=== PATIENT | male | born 1940 ===

== ENCOUNTER 2019-12-16 10:44 | Inpatient (IN) | payer MEDICARE ==
[~2019-12-16] VITALS: Ht 182.9 cm; Wt 98.0 kg
[2019-12-16 12:05] VITALS: BP 139/76; PULSE 91; TEMP 98.8
[2019-12-16] MEDS ORDERED: ASPIRIN 81M81 MG/TA2 PO ×2 (12:48→12:54)
[2019-12-16] MEDS ORDERED: LIPITOR 80MG80 MG PO (12:55)
[2019-12-16] MEDS ORDERED: PLAVIX 75MG TAB75 MG PO (12:55)
[2019-12-16] MEDS ORDERED: DULCOLAX STOOL100 MG PO (13:06)
[2019-12-16] MEDS ORDERED: MIRALAX PA17 GM/Dose PO (13:06)
[2019-12-16] MEDS ORDERED: TYLENOL 325MG325 MG PO (13:07)
[2019-12-16 18:05] VITALS: BP 153/84; PULSE 103; TEMP 98.7
--- NOTE | 2019-12-16 19:40 | NUR ---
Patient arrived via transport vehicle and came by stretcher. Daughter assisted with the 5 page questions. Patient talkative, has no movement to left arm and leg. He is left handed per daughter. Patient denied pain. He is incontinent of urine today x 2. Patient is a max 2 assist or full body lift. He has a great attitude and was comical this afternoon. He had orders for thin liquids, but patient coughed each time staff was given this. He was able to tolerated thickened liquids. He has a wet cough that is non productive. 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 Patient has no skin break down and was checked Q2Hrs this shift for any incontinence. He is currently resting in bed, call light in reach and bed alarm is set. Reported off to night nurse.
--- NOTE | 2019-12-16 20:00 | NUR ---
PT RESTING IN BED. LT SIDE FLACCID. PT ANSWERS QUESTIONS IN ONE -TWO WORDS. SLOW THOUGHT PROCESS. PT IS RESTLESS BUT NOT IMPULSIVE. HOB 90 DEGREES WHEN TAKING MEDS. TAKES HS MEDS CRUSHED WITH APPLESAUCE THEN A DRINK OF NECTAER THICK H20. PT HOLDS CONTENT IN MOUTH. NEEDS ENCOURAGED TO SWALLOW. SWALLOWS VERY HARD. HAS OCCASIONAL COUGH. 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 TYLENOL GIVEN. SEE MAR. NEEDS REPOSITIONED FREQUENTLY PT MIGTRATES TO LT SIDE OF BED. WEARS DIAPERS FOR INCONTINENCE. NO SKIN ISSUES NOTED. CALL LIGHT IN REACH. BED ALARM SET.
--- NOTE | 2019-12-17 01:50 | NUR ---
PT ASLEEP NOW.
--- NOTE | 2019-12-17 03:30 | NUR ---
PT AWAKE. MORE CONVERSIVE THIS AM. "I MUST HAVE IT THE CALL LIGHT BY MISTAKE." DENIES ANY NEEDS AT THIS TIME. RESTING AND MORE RELAXED.
[2019-12-17 06:00] VITALS: BP 147/77; PULSE 90; TEMP 97.6
--- NOTE | 2019-12-17 10:43 | NUR ---
Patient currently working with ST at this time. Patient sitting in recliner, call light in reach and alarm is set.
--- NOTE | 2019-12-17 14:23 | NUR ---
This patient is new to [facility]. SW met with the patient to complete initial intake but the patient as hard to rouse and somewhat confused. SW contacted the patient's , Yao ([phone]) to complete intake. The patient lives approximately 3 miles from [place] with Yao. The patient has a walker with a seat and prior to these hospitalizations the patient was independent with ADLs. The patient's PCP is Dr. Goss and the patient is to receive his medications from [facility] in [place]. The patient does not have advanced directives in the EMR. The patient's did inquire about DPOA-HC paperwork. SW informed the that we would have to wait until the patient was not confused and off any pain medications. Yao understood. The patient has two adult children, Kim and Jean. They both live approximately 2 miles from Yao and the patient. SW will continue to follow.
--- NOTE | 2019-12-17 14:36 | NUR ---
Patient resting in bed, call light in reach and bed alarm set. Air mattress was placed on patient's bed.
[2019-12-17 15:27] VITALS: BP 148/80; PULSE 90; TEMP 98.2
--- NOTE | 2019-12-17 19:10 | NUR ---
PATIENT RESTING IN BED DURING CHANGE OF SHIFT REPORT RECEIVED FROM DAY SHIFT NURSEKOMAL. BED ALARM ON.
--- NOTE | 2019-12-17 19:39 | NUR ---
Patient attended all therapies today. He was a total assist with eating, toileting and ambulation. Patient saw ST today and he is now on Mechanical soft, Thin liquids. See updated orders. Patient was fed his breakfast this morning and ate well. He refused his lunch, but this nurse fed him this evening and he ate most of his meal. Patient likes to lean to his left when in the recliner. He was incontinent three times this shift. A bladder scan was done this afternoon to make sure he was not retaining urine since he was talking about a dog that was here and that he wanted to feed it. The bladder scan showed 117 ml so he was not retaining. This was passed on to tester wafer substrate to keep an eye out for any other cognitive changes with him.
--- NOTE | 2019-12-17 20:00 | NUR ---
LUE/LLE WITH NO SPONTANEOUS MOVEMENT OBSERVED ON COMMAND OR ACTIVELY BY PATIENT, HAND CONCAVER NOT EQUAL W/ABSCENT SPORTS MEDICINE SPECIALIST TO L HAND. PATIENT ASST WITH REPOSITIONING WITH INCONTINENT CARE, INCONTINENT OF URINE AT THIS TIME. OBSERVED NONPRODUCTIVE MOIST COUGH, DENIES SHORTNESS OF BREATHING/CHEST PAIN. BED ALARM ON.
--- NOTE | 2019-12-18 03:00 | NUR ---
PATIENT DRY OF INCONTINENT URINE, SLEEPING WITH NONLABORED/EVEN BREATHING. BED ALARM ON.
[2019-12-18 05:35] VITALS: BP 149/78; PULSE 87; TEMP 98.7
--- NOTE | 2019-12-18 07:14 | NUR ---
PATIENT RESTING IN BED DURING CHANGE OF SHIFT REPORT GIVEN TO DAY SHIFT NURSEERWIN. BED ALARM ON.
--- NOTE | 2019-12-18 07:15 | NUR ---
shift report received from CAMI Grady
--- NOTE | 2019-12-18 07:30 | NUR ---
resting in bed, refuses breakfast at this time, explained to him he would be having therapy at 0830 and will need to eat prior to that, will return at 0800 to assist him with breakfast, verbalizes understanding
--- NOTE | 2019-12-18 08:30 | NUR ---
given am meds crushed in applesauce, was able to swallow capsule with applesauce and liquid with assistance, physical and occupational therapy in to work with patient
--- NOTE | 2019-12-18 09:35 | NUR ---
returned from therapy and resting in recliner,
--- NOTE | 2019-12-18 10:31 | NUR ---
speech therapy in to work with patient
--- NOTE | 2019-12-18 13:02 | NUR ---
physical therapy in to work with isabel
--- NOTE | 2019-12-18 13:15 | NUR ---
physical therapy in and assisted patient back to bed
--- NOTE | 2019-12-18 14:46 | NUR ---
inconctinent of urine and care provided
[2019-12-18 17:49] VITALS: BP 133/65; PULSE 89; TEMP 98.6
--- NOTE | 2019-12-18 17:49 | NUR ---
repositioned and sitting up in bed to eat supper
--- NOTE | 2019-12-18 18:51 | NUR ---
bedside shift report given to CAMI Grady
--- NOTE | 2019-12-18 19:01 | NUR ---
PATIENT SITTING UP IN BED DURING CHANGE OF SHIFT REPORT RECEIVED FROM DAY SHIFT NURSEERWIN. BED ALARM ON. PATIENT STILLING EATING FROM SUPPER TRAY INDEPENDENTLY, MEAL TRAY SET UP FOR PATIENT TO FEED HIMSELF.
--- NOTE | 2019-12-18 19:47 | NUR ---
OBSERVED CONTINUES LEFT UPPER EXTREMITY/LOWER EXTREMITY FLACCID WITH NO ACTIVE SPONTANEOUS MOVEMENT ON COMMAND. CONTINUE TO ELEVATE LUE/LLE FOR COMFORT. DENIES PRODUCTIVE COUGH, OBSERVED CONTINUED INTERMITTENT MOIST SOUNDING COUGH FROM PATIENT. PATIENT NONAMBULATORY DUE TO FLACCID LUE/LLE.
--- NOTE | 2019-12-19 00:30 | NUR ---
Patient sleeping with nonlabored breathing that is even. Does not awaken when room is entered by staff. Bed alarm on.
[2019-12-19 03:51] VITALS: BP 127/64; PULSE 81; TEMP 97.6
--- NOTE | 2019-12-19 07:44 | NUR ---
Patient resting in bed during change of shift report given to day shift nurseLyric. Bed alarm on.
[2019-12-19 08:25] LABS: BASO # 0.1 (0.0-0.2); BASO % 0.9 % (0.0-2.0); EOS # 0.3 (0.0-0.7); EOS % 3.4 % (0-4.0); GRAN # 5.2 (1.4-6.5); GRAN % 68.4 % (42.2-75.2); HEMATOCRIT 44.2 % (42.0-52.0); HEMOGLOBIN 14.2 g/dl (13.5-18.0); LYMPH # 1.2 (1.2-3.4); LYMPH % 15.2 % (20.0-51.0); MEAN CELL VOLUME 94 fl (80.0-100.0); MEAN CORPUSCULAR HEMOGLOBIN 30 pg (27.0-31.0); MEAN CORPUSCULAR HGB CONC 32 g/dl (33.0-37.0); MEAN PLATELET VOLUME 9.1 fl (7.4-10.4); MONO # 0.9 (0.1-0.6); MONO % 11.3 % (1.7-9.3); PLATELET COUNT 246 K/mm3 (130-400); RED BLOOD COUNT 4.71 M/mm3 (4.20-5.60); REDCELL DISTRIBUTION WIDTH-CV 12.4 % (11.5-14.5)
[2019-12-19 08:34] LABS: CALCIUM 9.4 mg/dL (8.4-10.2); CREATININE, serum 0.9 (0.66-1.25); MAGNESIUM 2.4 mg/dL (1.6-2.3); POTASSIUM 3.8 mmol/L (3.4-5.0)
--- NOTE | 2019-12-19 11:21 | NUR ---
Patient was set up for drinking his ensure drink this morning. Staff opened up container and he drank on his own with a straw. Patient was able to feed himself this morning with staff cutting up food and putting gravy on the meet. He used his call light to ask for assistance this morning. Patient was placed in front of the mirror to help him to see himself when he is leaning to one side and to try to correct that behavior. This morning this has been very helpful. Patient denies pain today.
--- NOTE | 2019-12-19 13:08 | NUR ---
Patient was able to get his shirt off over his head this afternoon in between therapies. He reported being hot and was sweating. Temperature was reajusted to his room. Patient refused lunch this afternoon. He is currently resting in bed, call light in reach and bed alarm is set. Patient in pleasent mood this afternoon. This nurse was able to transfer patient from recliner to his bed with a [id number] lift. Patient tolerated well. Denies pain at this time.
--- NOTE | 2019-12-19 15:17 | NUR ---
Patient resting in bed, call light in reach and bed alarm is set.
--- NOTE | 2019-12-19 16:38 | NUR ---
Admission QIM scores were reviewed by the team. Code of 3 chosen for oral hygiene was determined by team discussion to be the most usual performance before interventions for this patient during the assessment period. Code of 88 chosen for toileting transfers was determined by team discussion to be most accurate has pt had not transferred to toilet or BSC due to being incontinent during the assessment period. Code of 2 chosen for lying to sitting on side of bed was determined by team discussion to be the most usual performance for this patient during the assessment period.--Bette Block,
--- NOTE | 2019-12-19 17:15 | NUR ---
Patient used his call light to alert staff that he needed to use the urinal, but he was already wet when staff arrived. Brief and bedding was changed on patient and patient was able to role to the left side with no assistance, but did require mod assistance from staff to role to his right. Patient currently watching TV and awaiting his supper.
[2019-12-19 18:14] VITALS: BP 149/63; PULSE 91; TEMP 97.4
--- NOTE | 2019-12-19 18:30 | NUR ---
Patient was informed on the no visitor policy put into effect this evening.
--- NOTE | 2019-12-19 19:28 | NUR ---
Reported off to night nurse.
--- NOTE | 2019-12-19 21:00 | NUR ---
PT RESTING IN BED WITH HOB ELEVATED. PT ABLE TO USE YAUNKERS SUCTION PER SELF. HOB ALWAYS ELEVATED. WANES TO RT SIDE OD BED. HAS SOME VISULA DEFECTS. DOESNT LIKE TO WEAR GOWN AT HS. REFUSED SCD ON RIGHT. LEFT IT ON LT LLE. CHANGED DIAPER. REPOSTION TO LT SIDE. LT ARM ELEVATED ON PILLOW. LT FALCCID.CALL LIGHT IN REACH, BED ALLARM SET.
--- NOTE | 2019-12-20 03:51 | NUR ---
BED ALARM SOUNDING. PT HAS LEG OVER THE EDGE. NEEDS URINAL. PLACED URINAL VOIDED 250CC MARTHA CLEAR URINE. PT CONFUSED INTERMITTENTLY. COOPERATIVE. 2:1 REPOSITION TO TOP OF BED. RT EYE RED. NO EXUDATE. PT ALSO RELATES LT HIP HURTS WHEN WE TURN HIM. CALL LIGHT IN REACH. CONTINUES TO HAVE THICK LOOSE COUGH. ENC TO COUGH HARD TO CLEAR LUNGS. HOB REMAINS ELEVATED.
[2019-12-20 06:00] VITALS: BP 141/76; PULSE 80; TEMP 97.5
[2019-12-20 18:09] VITALS: BP 146/59; PULSE 85; TEMP 99
--- NOTE | 2019-12-20 19:00 | NUR ---
PATIENT DENIED PAIN THROUGHOUT THE SHIFT. PATIENT TOOK PO PILLS CRUSHED IN APPLESAUCE AND NEEDS TO BE QUED TO SWALLOW AT TIMES. PATIENT A&O DURING THE SHIFT. PATIENT RESTING IN BED AT THIS TIME. BED ALARM ON.
--- NOTE | 2019-12-20 23:24 | NUR ---
PT RESTING IN BED. PT CONTINUALLY TRYS TO GET LEGS OVER THE SIDE IF BED. BED ALARM SOUNDS. USING URINAL AT TIMES.
--- NOTE | 2019-12-21 04:25 | NUR ---
PT USED URINAL TWICE THIS SHIFT W/O SPILLAGE. PT DOES KEEP UNDRESSING SELF AND REMOVING DIAPER. KEEPS MOVING LEGS OVER EDGE OF THE BED. ENC PT TO KEEP COVERED AND STAY INTO BED FOR SAFETY. NEEDS REPOSITIONED FREQUENTLY HE MOVES TO RT SIDE OF BED UP AGAINST SIDERAIL.
[2019-12-21 06:00] VITALS: BP 148/88; PULSE 52; TEMP 97.6
--- NOTE | 2019-12-21 15:10 | NUR ---
RUTHIE met with the patient but he was hard to rouse. RUTHIE contacted the patient's , Yao to discuss Team Conference notes and to address any questions or concerns. RUTHIE read the notes and discussed notes with Yao. She states she knows the nurses are busy but she would like for someone to contact her. RUTHIE informed the patient's nurse. Will continue to monitor.
--- NOTE | 2019-12-21 17:09 | NUR ---
Patient resting in bed at this time. Patient has denied pain today. Patient was able to participate in using sit to stand lift during transfers and turning/repositioning in bed. Patient was continent of bladder several times today in the urinal, but was incontinent of bowel and bladder this afternoon, had a medium soft bowel movement. Patient has had good intake at meals. Denies further needs at this time, call light within reach.
[2019-12-21 17:38] VITALS: BP 135/69; PULSE 74; TEMP 98.7
--- NOTE | 2019-12-21 19:05 | NUR ---
Received report from Jeanette. Seen patient awake in bed. He is drinking the Ensure with ice cream and was able to finish everything. Call light within reach.
--- NOTE | 2019-12-21 20:00 | NUR ---
Patient's left leg is dangling on the side of the bed. Repositoned patient and briefs were changed. Placed pillows on his right side.
--- NOTE | 2019-12-21 22:30 | NUR ---
Patient had a bowel movement. Changed his briefs and repostioned him.
--- NOTE | 2019-12-22 00:10 | NUR ---
Patient was trying to remove his briefs. When asked what he needs, he said he needs his urinal but he is already urinating and wet his shirt. Changed patient's briefs and put on a new yellow gown. SCD applied on both lower extremities.
--- NOTE | 2019-12-22 04:00 | NUR ---
Changed patient's briefs and pads. He denies any pain. He removed his gown and doesn't want it back for now saying he doesn't need it. He covered himself with blanket and went back to sleep after changing.
[2019-12-22 06:05] VITALS: BP 154/84; PULSE 78; TEMP 98.1
--- NOTE | 2019-12-22 07:14 | NUR ---
Endorsed patient to Kelly. Patient is asleep during shift change. Diapers and underpads were changed at around 0620H. He denies pain. Bed alarm on.
[2019-12-22 17:24] VITALS: BP 142/67; PULSE 80; TEMP 97.8
--- NOTE | 2019-12-22 19:03 | NUR ---
PATIENT RESTED IN BED TODAY. PATIENT DENIED PAIN THROUGHOUT THE SHIFT. PATIENT CHECKED AND CHANGED EVERY TWO HOURS FOR INCONTINENCE. INCONTINENT CARE PROVIDED NEEDED. PATIENT REPOSITIONED FREQUENTLY THROUGHOUT THE SHIFT WITH PILLOWS. PATIENT FINISHING DINNER TRAY AND WATCHING TV. SCD'S TO BLE. CALL LIGHT WITHIN REACH. BED ALARM ON. REPORT GIVEN TO CAMI PASCAL.
--- NOTE | 2019-12-22 19:34 | NUR ---
Received report from Kelly. Seen patient sitting in bed, eating his dinner. He denies pain. Bed alarm on. Call light within reach. Will rechecked his diapers after dinner.
--- NOTE | 2019-12-23 04:00 | NUR ---
Patient woke up early. He's looking for his razor. Informed him I didn't see any razor in the room but we can provide one. He agreed. Briefs were changed. Patient doesn't want to wear his gown. Bed alarm on.
[2019-12-23 06:14] VITALS: BP 140/62; PULSE 88; TEMP 98.9
--- NOTE | 2019-12-23 06:30 | NUR ---
resting in bed asking for something to be moved that isn't there, repositioned in bed
--- NOTE | 2019-12-23 07:55 | NUR ---
positioned up in bed and assited with tray for eating breakfast, is able to eat independently,
--- NOTE | 2019-12-23 10:00 | NUR ---
hygiene and incontinent care provided, repostioned to right side, full assessment completed, see intervention for further info, has loowe rattley cough and encouraged to C&DB, lungs with some coarse sounds in upper lobes but clears after coughing, bases bilaterally diminished,
--- NOTE | 2019-12-23 11:00 | NUR ---
entered room and he has removed the cover and is trying to remove brief and has been incontinent of semi formed brown stool, care provided and repositioned to left side
--- NOTE | 2019-12-23 12:00 | NUR ---
repositioned up in bed and only back for lunch
--- NOTE | 2019-12-23 13:50 | NUR ---
remains in bed, brief is dry at this time
--- NOTE | 2019-12-23 16:44 | NUR ---
entered room and he has both legs over the side of the bed on the left side, when asked to move his left leg he is unable but when asked to move left arm there is minimal movement, has been incontinenet of urine and stool and care provided, has reddened area on right buttocks, repositioned to left side
[2019-12-23 16:45] VITALS: BP 137/54; PULSE 78; TEMP 98.1
--- NOTE | 2019-12-23 17:40 | NUR ---
entered room and he had removed brief and was incontinent, care provided, assisted with sitting up for supper, continues with loose rattly cough
--- NOTE | 2019-12-23 18:50 | NUR ---
PATIENT RESTING IN BED DURING CHANGE OF SHIFT REPORT. BED ALARM ON. DENIES ANY NEEDS OR CONCERNS OR COMPLAINTS.
--- NOTE | 2019-12-23 20:00 | NUR ---
OBSERVED LUE FLACCID D/T STROKE AND LLE WITH WEAKNESS D/T STROKE. SPEAKS CLEAR, ALERT, IS PARTIALLY ORIENTED TO PLACE,SITUATION. NO FACIAL DROOPING OBSERVED, SWALLOWS WITH NO PROBLEMS IF SITTING UP AT 90 DEGREES, FOLLOWING ASPIRATION PRECAUTIONS. DENIES ANY DISCOMFORT.
--- NOTE | 2019-12-24 03:30 | NUR ---
PATIENT SLEEPING, DOES NOT AWAKEN WHEN ROOM ENTERED BY STAFF, OBSERVED RESP NONLABORED AND EVEN. BED ALARM ON.
[2019-12-24 06:25] VITALS: BP 144/77; PULSE 86; TEMP 98.3
--- NOTE | 2019-12-24 07:00 | NUR ---
PATIENT RESTING IN BED DURING REPORT WITH BED ALARM ON.
--- NOTE | 2019-12-24 11:05 | NUR ---
Patient currently working with ST at this time, call light in reach and alarm is set. Patient took a little to arouse this morning for breakfast. He refused his breakfast, but did drink his ensure. Will continue to monitor.
[2019-12-24 15:30] VITALS: BP 136/89; PULSE 83; TEMP 98.4
--- NOTE | 2019-12-24 15:34 | NUR ---
RUTHIE met with the patient to follow up from the weekend. The patient states everything is okay. The patient wanted to talk to his . SW assisted the patient with dialing his 's phone number on his phone. Will continue to follow.
[2019-12-24 17:16] VITALS: BP 158/80; PULSE 82; TEMP 97.7
--- NOTE | 2019-12-24 19:09 | NUR ---
PATIENT RESTING IN BED DURING CHANGE OF SHIFT REPORT RECEIVED FROM DAY SHIFT NURSE, KOMAL, WITH BED ALARM ON. NO NEEDS REPORTED AT TIME OF REPORT.
--- NOTE | 2019-12-24 19:45 | NUR ---
Patient had a fall this morning prior to lunch approx 11:55 A.M. Patient reported that he was trying to put his phone in his pocket and fell on the floor. CAll light was in patient reach, yellow slip proof socks were on; he has a fall braclet on, fall risk sign up and chair alarm sounded. Patient fell forward on his left side hitting his head on the left [facility] and causing an abrasion to his left elbow. Areas were cleaned, patted dry and three steri strips placed on left elbow. Patient was put on Q 2 Hour neuro checks following the fall. See orders per Dr. Reyez for scans to monitor following fall. Patient was assisted by staff from the floor with a full lift and placed in bed. Patient given an ice pack for his forhead. Following all patient's scans he was incontinent of urine and stool and this nurse assisted patient with changing. Reported off to night nurse.
--- NOTE | 2019-12-24 20:36 | NUR ---
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 MOVES RUE/RLE ACTIVELY WITH NO PROBLEMS. MOIST COUGH THAT IS PRODUCTIVE AT TIMES, PATIENT USES ORAL SUCTIONING WITH NO PROBLEMS. DENIES PAIN AT THIS TIME.
--- NOTE | 2019-12-25 02:04 | NUR ---
PATIENT CONTINUES TO UNDO ADULT DIAPER, WITH INCONTINENT URINE ON BED LINEN AND DIAPER, INCONTINENT SKIN CARE GIVEN, ZINC OXIDE OINTMENT APPLIED, NO OBVIOUS REDNESS TO BUTTOCK SEEN AT THIS TIME. SPEAK APPROPRIATELY AND FOLLOW COMMANDS APPROPRIATELY AT THIS TIME.
--- NOTE | 2019-12-25 03:54 | NUR ---
OBSERVED PATIENT NOT SLEEPING SO FAR TONIGHT, REPORTS HE NEEDS TO GET UP AND GET MORE CLOTHES, NEEDS MORE SHORTS. SPEECH CLEAR, FOLLOWS COMMANDS. BED ALARM ON.
[2019-12-25 05:20] VITALS: BP 156/61; PULSE 81; TEMP 98.8
--- NOTE | 2019-12-25 05:59 | NUR ---
PATIENT SETTING BED ALARM OFF, SITTING AT FOOT OF BED, WHEN ASKED HE DID NOT KNOW WHAT HE NEEDED. INFORMED BREAKFAST WOULD NOT BE DELIVERED UNTIL AFTER 0700, PATIENT THEN DECIDED TO LAY BACK DOWN, ADULT DIAPERS DRY, PATIENT DENIES INCONTINENCE IN ADULT DIAPERS. BED ALARM ON.
--- NOTE | 2019-12-25 06:03 | NUR ---
PATIENT SLEEPING, BREATHING NONLABORED AND EVEN. BED ALARM ON.
--- NOTE | 2019-12-25 07:14 | NUR ---
PATIENT RESTING IN BED DURING CHANGE OF SHIFT REPORT GIVEN TO DAY SHIFT NURSEKOMAL. BED ALARM ON.
--- NOTE | 2019-12-25 09:57 | NUR ---
Patient resting in bed, call light in reach and alarm set. Patient denies pain this morning, but still has a bump to his left catholic area due to fall yesterday. Applying ice as needed. Patient ate all his breakfast this morning. Visited with daughter this morning and she will be bringing by a care package for the patient sometime today.
[2019-12-25 10:55] VITALS: BP 117/60; PULSE 83; TEMP 97.6
--- NOTE | 2019-12-25 11:04 | NUR ---
Patient was unable to work with therapy this morning due to being very lethargic. Patient vitals are the following: BP 117/60, R 20, P 83, O2 89% on Room air and 92% on 1 1/2 Liter oxygen. Patient attended all therapies this morning, but has still been showing confusion when it comes to his conversations. Patient is able to awake to his name, but then goes directly back to sleep. Call placed to Charge Nurse awaiting her to come see patient at this time VSS.
[2019-12-25 11:38] VITALS: BP 135/78; PULSE 80
--- NOTE | 2019-12-25 14:05 | NUR ---
Patient's daughter dropped off another pair of glasses for patient to use since his other ones broke during the fall. He also received his watch that he has been talking about as well as a long 6 foot apparel stock checker for his cell phone. He also received a pair of shoes, clothing and an electric razor. Patient's watch was put on and his phone is now plugged in and by his side. Patient ate two bowels of pudding and some peaches for lunch. He is now working with therapy. Patient has been having more movement with his left leg and able to move his LUE a slight amount using left shoulder. Will continue to monitor.
--- NOTE | 2019-12-25 16:06 | NUR ---
Patient was a one person sit to stand transfer from toilet to the bed. He was two person transfer from sitting on side of bed to lying down in bed. Patient was incontinent of urine, but not incontinent of stool. Patient currently resting in bed, call light in reach and bed alarm is set. Will continue to monitor.
[2019-12-25 18:00] VITALS: BP 127/34; PULSE 82; TEMP 98.9
--- NOTE | 2019-12-25 18:58 | NUR ---
PATIENT RESTING IN BED DURING CHANGE OF SHIFT REPORT RECEIVED FROM DAY SHIFT NURSEKOMAL. BED ALARM ON.
--- NOTE | 2019-12-25 19:36 | NUR ---
LUE WEAKNESS/FLACCID CONTINUES D/T STROKE HX, DENIES NUMBNESS TO LUE, OBSERVED SOME SPONTANEOUS MOVEMENT TO LLE INTERMITTENTLY. OBSERVED STILL HAS MOIST COUGH THAT IS INTERMITTENTLY PRODUCTIVE, PATIENT ABLE TO ORAL SUCTION SECRETIONS. PATIENT BED REST AT NIGHT DUE TO SAFETY CONCERNS WITH LUE FLACCID AND WEAKNESS TO LLE.
--- NOTE | 2019-12-26 00:43 | NUR ---
PATIENT SLEEPING, BREATHING NONLABORED AND EVEN. BED ALARM ON. DOES NOT AWAKEN WHEN ROOM ENTERED BY STAFF.
--- NOTE | 2019-12-26 02:34 | NUR ---
PATIENT REPOSITIONED IN BED, OBSERVED UPON ENTERING ROOM, PATIENT LAYING WITH BOTH FEET OVER BOTTOM LEFT SIDE OF BED AND UPPER HAVE LAYING DIAGONAL TOWARD UPPER RIGHT SIDE OF BED.
[2019-12-26 06:16] VITALS: BP 135/62; PULSE 81; TEMP 98.1
--- NOTE | 2019-12-26 07:42 | NUR ---
PATIENT RESTING IN BED DURING CHANGE OF SHIFT REPORT GIVEN TO DAY SHIFT NURSEKELBY. BED ALARM ON.
--- NOTE | 2019-12-26 13:40 | NUR ---
PATIENT CALLED OUT FOR ASSISTANCE WITH THE URINAL. PATIENTS BRIEF DRY WHEN CHECKED. PATIENT VOIDED 250 MLS WITH ASSISTANCE HOLDING THE URINAL IN THE BEDSIDE CHAIR.
--- NOTE | 2019-12-26 15:27 | NUR ---
Trade Sales Assistant received a message from Maia (ph#[phone]) from [facility] who advised patient has a telehealth visit scheduled for 01/03/20 @ 1000. RUTHIE called Maia back and left a message about facilitating telehealth appointment. RUTHIE contacted patient's , Yao to provide update. Yao asked that RUTHIE contact their daughter, Kim (ph#[phone]) to provide update. Kim advised that she will be brought in on telehealth visit over the phone and has been coordinating with Maia. Kim also advised she has DPOA-HC documents for patient to sign and get notarized. Kim states she will try to drop these documents off this week. RUTHIE met with patient to review and provide copy of team conference notes. Patient states he feels good and doesn't have any questions at this time. RUTHIE will continue to follwo.
[2019-12-26 16:50] VITALS: BP 134/59; PULSE 76; TEMP 98
--- NOTE | 2019-12-26 19:00 | NUR ---
PATIENT WAS ABLE TO CALL OUT AND NOTIFY THE STAFF WHEN HE NEEDED TO USE THE URINAL DURING THE DAY. PATIENT NEEDS ASSISTANCE WITH HOLDING THE URINAL. DURING SHIFT REPORT THE PATIENT WAS FOUND LAYING IN THE BED SIDEWAYS WITH HIS LEGS HANGING OFF THE LEFT SIDE OF THE BED. PATIENT REPOSITIONED AND BOOSTED IN BED. PATIENT IS ABLE TO ROLL SIDE TO SIDE WELL WITH VERBAL CUES. PATIENT IS ABLE TO HELP ASSIST THE STAFF IN BOOSTING IN BED BY PRESSING HIS RIGHT FOOT DOWN AGAINST THE BED AND PUSHING. PATIENT REPOSITIONED WITH MULTIPLE PILLOWS. PATIENT DENIES PAIN OR ANY NEEDS AT THIS TIME. REPORT GIVEN TO CAMI PASCAL.
--- NOTE | 2019-12-26 19:30 | NUR ---
Received report from Kelly. Patient is awake, lying in bed. Briefs changed and repositioned patient. Denies pain. Dressing on left elbow intact. Call light within reach. Bed alarm on.
--- NOTE | 2019-12-26 23:45 | NUR ---
Checked on patient and seen him touching his briefs. Patient said he needs to use a urinal. Assisted patient and he was able to urinate 200ml.
[2019-12-27 06:11] VITALS: BP 146/67; PULSE 82; TEMP 98.2
--- NOTE | 2019-12-27 06:43 | NUR ---
Patient was able to sleep intemittently. He would wake up if he feels the need to urinate. This nurse would go check on him every 2 hours and offer the urinal. He denies pain. Patient repositioned this morning. Pillows placed on his both sides.
--- NOTE | 2019-12-27 15:25 | NUR ---
Assembler Bicycle spoke with NGHIA Amos to provide time and date of telehealth visit for patient so that therapy can be scheduled around appointment. RUTHIE also spoke with patient's daughter, Kim who dropped off DPOA documents in the ED. RUTHIE will follow up on locating a notary for this paperwork.
[2019-12-27 16:59] VITALS: BP 138/61; PULSE 80; TEMP 98.6
--- NOTE | 2019-12-27 17:50 | NUR ---
PATIENT CALLED OUT REQUESTING THE URINAL. UPON ENTRY TO THE ROOM THE PATIENT HAD AN INCONTINENT VOID IN THE BRIEF. PATIENT CHANGED. ZINC OINTMENT APPLIED TO SACRUM. PATIENT ABLE TO ASSIST IN BOOSTING IN BED BY GRABBING THE BED RAILING OVERHEAD AND PUSHING HIS RIGHT LEG INTO THE BED. PATIENT REPOSITIONED WITH PILLOWS. BED ALARM ON. CALL LIGHT WITHIN REACH.
--- NOTE | 2019-12-27 19:00 | NUR ---
PATIENT RESTING IN BED AT THIS TIME. REPORT GIVEN TO CAMI CAMPBELL.
--- NOTE | 2019-12-27 21:00 | NUR ---
PT AWAKE AND ORIENTED. HOB ELEVATED TO TAKE CRUSHED PILLS IN PUDDING. NEEDS REMINDED TO SWALLOW. NO CHOKING NOTED. DENIES PAIN AT THIS TIME. LT SIDE FLACCID. RT EYE VERY RED AND DRY. PROVIDED REFRESH EYE GTTS. WEARS ADULT DIAPERS AT HS FOR OCCASIONAL INCONTINENCE. CALL LIGHT IN REACH. BED ALARM SET.
[2019-12-28 05:10] VITALS: BP 139/62; PULSE 77; TEMP 97.4
--- NOTE | 2019-12-28 12:33 | NUR ---
Patient resting in bed call light in reach and bed alarm set. Patient denies pain this morning. Patient was a sit to stand with transferring from bed to wheelchair and back to bed. Patient dependent with wiping and changing his brief. Patient has been incontinent with stool and urine this shift. He did have a medium BM This afternoon. Will continue to monitor.
--- NOTE | 2019-12-28 16:11 | NUR ---
Data Keyer attempted to meet with patient but he was asleep. SW contacted patient's , Yao to provide update. SW will continue to follow.
[2019-12-28 16:34] VITALS: BP 127/63; PULSE 80; TEMP 99.3
--- NOTE | 2019-12-28 19:59 | NUR ---
Patient attended all therapies today. He was a sit to stand lift for all transfers. He was dependent with toileting. Denied pain this shift. Patient tolerated diet well. Right eye continues to be slightly red, with no drainage. Dr. Valencia aware and wants to have him just continue with the eye drops he has at this time. Will continue to monitor. Left elbow healing and mepilex is CDI. Reported off to night nurse.
--- NOTE | 2019-12-28 20:00 | NUR ---
PT RESTING IN BED. VERY IMPULSIVE TONIGHT. NEEDS REPOSITIONED IN BED FREQUENTLY. CONSTANTLY CROWDS RT SIDE OF THE BED UP AGAINST SIDERAIL. DENIES PAIN. LT SIDE FLACCID. LT ARM NEGLECT. PLACED ON PILLOW FREQUENTLY. PT USES HUMOR TO HIDE DEFICITS. USES URINAL WITH ASSIST AND OCCASIONALLY INCONTINENT OF URINE. HS CARES COMPLETED WITH ASSIST NEEDED. CALL LIGHT IN REACH. BED ALARM SET.
--- NOTE | 2019-12-29 04:24 | NUR ---
PT HAD A VERY RESTLESS NIGHT. MOVES AROUND IN. MOVING CLOTHING, LINENS, PILLOWS. MOVES BP CUFF FROM SIDE RAIL. DROPPED URIAL ON FLOOR. PT REPORTS "ONE MINUTE LAST A LONG TIME HERE." ORIENTED TO PLACE AND MONTH. DENIES PAIN.
[2019-12-29 05:06] VITALS: BP 139/63; PULSE 82; TEMP 98.5
--- NOTE | 2019-12-29 05:20 | NUR ---
PT SLEEPING NOW. NO RESP DISTRESS.
[2019-12-29 16:23] VITALS: BP 147/68; PULSE 86; TEMP 97.7
--- NOTE | 2019-12-29 18:52 | NUR ---
PATIENT HAD AN UNEVENTFUL DAY. PATIENT REPOSITIONED NEEDED THROUGHOUT THE SHIFT. PATIENT IS MORE RESTLESS THAN USUAL. PATIENT WAS INCONTINENT THROUGHOUT THE SHIFT. PATIENT ENCOURAGED TO USE AND CALL FOR THE URINAL. PATIENT RESTING IN BED AT SHIFT CHANGE. CALL LIGHT WITHIN REACH. BED ALARM ON. REPORT GIVEN TO CAMI CAMPBELL.
--- NOTE | 2019-12-29 19:45 | NUR ---
PT VERY RESTLESS THIS EVENING. LEGS OVER THE EDGE OF BED. PT TOOK HIS CLOTHING OFF. HAD SHEET OVER HIS HEAD. HAD FACE MASK ON. PT WAS ORIENTED BUT BEHAVIOR INAPPROPRIATE. DISCUSSED GOAL TO KEEP CLOTHING ON THROUGH THE NIGHT. PT AGREED. NEEDS ASSIST WITH URINAL PRN. REPOSITIONED. CHANGED DIAPERS- INCONTINENT OF URINE. TAKES MEDS CRUSHED WITH PUDDING. DELAYED SWALLOWING. NEEDS CUED TO SWALLOW AT TIMES. HOB ELEVATED UP WHILE TAKING MEDS. CALL LIGHT IN REACH. BED ALARM SET.
--- NOTE | 2019-12-30 01:03 | NUR ---
PT NAKED. LEGS HANGING OVER LT SIDE OF BED. PT CONFUSED. WANTS LIGHT TURNED OFF IN THAT CLOSET. NOTED REDNESS TO INNER GROIN. INCONTINENT URINE AND SMEAR STOOL. CLEANED UP. APPLIED BARRIER OINTMENT. CALL LIGHT IN REACH. BED ALARM SET. PT PLACES SHEET OVER HEAD.
--- NOTE | 2019-12-30 04:34 | NUR ---
PT SLEEPING WITH SNORING RESP. NO DISTRESS.
[2019-12-30 04:48] VITALS: BP 141/64; PULSE 85; TEMP 98.3
--- NOTE | 2019-12-30 12:31 | NUR ---
PATIENT ASSESSMENT COMPLETED HE HAS FINISHED BREAKFAST AND DENIES OTHER NEEDS. DENIES PAIN
--- NOTE | 2019-12-30 13:14 | NUR ---
PATIENT SLEEPING IN BED. NO SIGNS OF DISTRESS NOTED
[2019-12-30 18:12] VITALS: BP 127/64; PULSE 85; TEMP 97.6
--- NOTE | 2019-12-31 05:42 | NUR ---
Patient had a restless night, required incontinent care for bowel and bladder several times. Patient required frequent repositioning due to restlessness, but was cooperative and plesent when repositioned or redirected. Patient was able to participate in cares by rolling independently. Patient has denied pain or further needs, call light within reach, bed alarm on.
[2019-12-31 05:47] VITALS: BP 125/77; PULSE 85; TEMP 98.5
--- NOTE | 2019-12-31 08:41 | NUR ---
Assessment completed, alert/ oriented to person and place, patient gets confused and disoriented at times but is easily redirected and follows commands, denies pain, vital signs have been stable, a.m meds given, he is now dressed and has eaten some breakfast and is now going downstairs for PT/OT
--- NOTE | 2019-12-31 16:29 | NUR ---
Quality Specialist met with patient to follow up from the weekend. Patient reports no concerns or questions at this time. SW contacted patient's daughter, Kim to advise that Financial DPOA documents she left for patient to sign could not be notarized at the hospital. SW will continue to follow.
[2019-12-31 18:05] VITALS: BP 142/64; PULSE 86; TEMP 98.4
--- NOTE | 2019-12-31 20:00 | NUR ---
At time of assessment, patient is resting in bed. He is oriented to self, place and situation but is still disoriented to some things and is forgettful. He exhibits extensive left-sided weakness and cannot squeeze my hand with his left hand. He has no complaints of pain; no edema is present. Heart sounds are regular/normal and lungs have audible insp. wheezes in all lobes. No new concerns at this time.
[2020-01-01 05:16] VITALS: BP 141/86; PULSE 102; TEMP 97.7
--- NOTE | 2020-01-01 05:16 | NUR ---
Patient has slept for parts of the night. He has woken up a few times, looking for his dog. He has been incontinent of urine in his brief at least three times. No complaints of pain. Will continue to monitor.
--- NOTE | 2020-01-01 08:13 | NUR ---
Patient resting in bed at this time, call light in reach and alarm set. Patient denies questions at this time. Will continue to monitor.
--- NOTE | 2020-01-01 13:33 | NUR ---
Currently with therapy at this time.
--- NOTE | 2020-01-01 16:02 | NUR ---
Organizational Consultant collaborated with patient's daughter, Kim and IPR Director Bette about DPOA documents Kim would like signed by patient. Kim arranged for virtual notary with her cousin, who is an color maker. Bette to facilitate video chat between patient and color maker. RUTHIE to continue to follow.
[2020-01-01 18:27] VITALS: BP 151/61; PULSE 94; TEMP 98.6
--- NOTE | 2020-01-01 18:27 | NUR ---
Patient resting in bed at this time, call light in reach and bed alarm set.
--- NOTE | 2020-01-01 19:28 | NUR ---
Patient attended all therapies. He was a sit to stand lift with transfers to the toilet and back. Patient was dependent with changing brief and wiping self. Patient was set up for eating this shift. Patient denies questions at this time. Patient denied pain today. Patient had a continent BM this afternoon. Reported off to night nurse.
--- NOTE | 2020-01-01 20:00 | NUR ---
PT IN BED. RESTLESS. CONFUSED. THINKS IT HIS BIRTHDAY. WANTING HIS BIRTHDAY CAKE. PT KNOWS PLACE AND SELF ONLY. UNDRESSES FREQUENTLY. COVERS HIS HEAD WITH A SHEET. SEE MAR FOR TYLENOL GIVEN. PT INCONTINENT. CHANGED ADULT DIAPERS. PT TAKES OFF DIAPERS AND IS INCONTINENT OR CHUX. PT ABLE TO PULL SELF UP IN BED WHEN HE IS ABLE TO REACH THE HEAD GRAB BAR. PT TAKES PILLS CRUSHED IN PUDDING WITH SWALLOW PRECAUTIONS IN EFFECT. CALL LIGHT IN REACH. BED LARM SET.
[2020-01-02 05:30] VITALS: BP 138/69; PULSE 82; TEMP 97.5
--- NOTE | 2020-01-02 06:11 | NUR ---
PT HAD A RESTLESS NIGHT. MOVES AROUND IN BED AND EDGES LT LEG OFF BED. OR MOVES UPPER BODY INTO RT SIDERAIL. DENIES PAIN. PT RELATES NOT GETTING ENOUGH SLEEP. URINARY INCONTINENCE THROUGHT THE NIGHT. CHANGED ADULT DIAPERS 5-6 TIMES. CALL LIGHT IN REACH. BED ALARM SET.
--- NOTE | 2020-01-02 09:14 | NUR ---
Patient resting in bed, call light in reach and bed alarm set. Patient incontinent of urine in the AM and was changed. He just finished his first round of ST this morning and is sleeping at this time. Denies pain this shift.
[2020-01-02 16:18] VITALS: BP 123/65; PULSE 80; TEMP 98.2
--- NOTE | 2020-01-02 16:54 | NUR ---
Retrofit Installer met with patient to review and provide copy of team conference notes. SW advised discharge date is set for 01/11/20 and recommendation is for SNF. Patient states he would prefer to go home but will talk with his family about options. RUTHIE followed up with patient's daughter, Kim who would like referrals sent to [facility], [facility], and [facility]. Kim advised she will speak with her mother about this update. SW to fax referrals and will continue to follow.
--- NOTE | 2020-01-02 20:00 | NUR ---
PT RESTLESS AND MOVES AROUND IN BED. HS CARES DONE. INCONTINENT URINE. WEARS DIAPER. ABLE TO FOLLOW DIRECTION BUT CONVERSATION IS CONFUSED AQS PER GENERLA TOPICS. THINKS THIS IS MAY AND IT IS BREAKFAST TIME TIME TO GET UP.BUT KNOWS HE IS IN HOSPITAL, HIS FAMILIED NAME, AND HGIS BDAY. LT SIDE REMAINS FLACCID. TAKES PILLS CRUSHED WITH APPLESAUCE. SWALLOWING EFFORTS MUCH IMPROVED. CALL LIGHT IN REACH. BED PAMELA SET
[2020-01-03 04:23] VITALS: BP 149/76; PULSE 86; TEMP 98.1
--- NOTE | 2020-01-03 10:39 | NUR ---
PATIENT CHECKED. BRIEF DRY. PATIENT OFFERED URINAL. PATIENT REFUSED URINAL. PATIENT SITTING UP IN BED DRINKING ENSURE. PATIENT DENIES PAIN OR ANY NEEDS AT THIS TIME. BED ALARM ON. CALL LIGHT WITHIN REACH.
--- NOTE | 2020-01-03 16:55 | NUR ---
English Instructor contacted [facility] then faxed referral. SW will continue to follow.
[2020-01-03 17:02] VITALS: BP 135/72; PULSE 85; TEMP 99
--- NOTE | 2020-01-03 19:00 | NUR ---
PATIENT HAD ONE INCONTINENT VOID DURING THE DAY. PATIENT OTHERWISE CALLED OUT REQUESTING THE URINAL AND OR COMMODE. PATIENT IS ABLE TO TURN SIDE TO SIDE IN BED WITH MINIMAL ASSISTANCE. PATIENT ABLE TO ASSIST IN BOOSTING IN BED BY PULLING THE BAR OVERHEAD AND PUSHING INTO THE MATTRESS WITH RLE WITH TWO STAFF MEMBERS REPOSITIONING WITH CHUCKS PADS. PATIENT REPOSITIONED NEEDED THROUGHOUT THE SHIFT. PATIENT DENIED PAIN THROUGHOUT THE DAY. BED ALARM ON. CALL LIGHT IN REACH. BEDSIDE REPORT GIVEN TO CAMI DOBBS.
--- NOTE | 2020-01-03 20:00 | NUR ---
STILL HAS WEAKNESS TO LUE, OBSERVED MOVEMENT TO L SHOULDER, OBSERVED PROM WITH WEAKNESS TO LLE COMPARED TO RLE. REPORTS EQUAL SENSATION TO BUE AND BLE. HAS UNEQUAL BIOCHEMISTRY SPECIALIST WITH NO BIOCHEMISTRY SPECIALIST OBSERVED TO LEFT HAND. FOLLOWS COMMANDS WELL.
--- NOTE | 2020-01-04 02:30 | NUR ---
PATIENT SLEEPING, DOES NOT AWAKEN WHEN ROOM ENTERED BY STAFF. BREATHING NONLABORED AND EVEN. BED ALARM ON.
[2020-01-04 05:25] VITALS: BP 126/86; PULSE 87; TEMP 98.2
--- NOTE | 2020-01-04 07:39 | NUR ---
PATIENT RESTING IN BED DURING CHANGE OF SHIFT GIVEN TO DAY SHIFT NURSEKELBY. BED ALARM ON.
--- NOTE | 2020-01-04 16:23 | NUR ---
Scrap Stripper Hand spoke with Lucy at [facility] who declined referral. RUTHIE spoke with [facility] who advised they are in network with [facility] and can accept. RUTHIE spoke with [facility] who advised they are not in network so patient would have large out of pocket cost. RUTHIE then followed up with Mae at [facility] who states they can accept after the and can submit for prior authorization next week if they are first preference. [facility] continues to review updates. RUTHIE contacted Kim to provide update. Kim reports [facility] would likely be first preference and [facility] would be second preference. RUTHIE will continue to follow.
[2020-01-04 16:59] VITALS: BP 119/69; PULSE 81; TEMP 98
--- NOTE | 2020-01-04 19:00 | NUR ---
PATIENT RESTING IN BED WITH BED SHEET OVER HIS HEAD. SCD TO LLE. PATIENT REFUSED SCD TO RLE. BLE ELEVATED ON PILLOW. PATIENT REFUSED LUNCH AND DINNER TODAY. PATIENT STATES THAT HE'S JUST NOT HUNGRY. THIS NURSE OFFERED TO ORDER SOMETHING ELSE FOR THE PATIENT, HE REFUSED. PATIENT DENIED PAIN DURING SHIFT. BED ALARM ON. CALL LIGHT IN REACH. REPORT GIVEN TO CAMI DOBBS.
--- NOTE | 2020-01-04 20:00 | NUR ---
PATIENT WITH LUE WEAKNESS D/T STROKE WITH OBSERVED L SHOULDER MOVEMENT, NO L HAND GRASP OBSERVED ON COMMAND NOR SPONTANEOUSLY. OBSERVED SOME LLE MOVEMENT SPONTANEOUSLY AND ON COMMAND. DENIES NUMBNESS TO EXTREMITIES, DENIES CHEST PAIN/SHORTNESS OF BREATH. BED ALARM ON.
--- NOTE | 2020-01-05 02:23 | NUR ---
PATIENT AWAKE, DISPOSIBLE BRIEFS OFF, STATING HE WAS TRYING TO VOID BUT URGE SUBSIDED AND HAS BEEN PASSING A LOT OF GAS. DISPOSIBLE BRIEFS DRY AND PUT BACK ON PATIENT, PATIENT REPOSITIONED UP AND CENTERED IN BED WITH PATIENT ASSISTING REPOSITIONING. BED ALARM ON. DENIES ANY NEEDS AT THIS TIME.
[2020-01-05 05:25] VITALS: BP 147/77; PULSE 85; TEMP 97.6
--- NOTE | 2020-01-05 07:33 | NUR ---
PATIENT RESTING IN BED/SLEEPING DURING CHANGE OF SHIFT REPORT GIVEN TO DAY SHIFT NURSECONCHITA. BED ALARM ON.
--- NOTE | 2020-01-05 10:23 | NUR ---
Patient sitting up in bed, leaning to the right. Nurse repositioned patient. A&Ox3. Denies pain and discomfort. VSS. Dried blood left side on face onto neck. Patient scratched face. Nurse assisted with cleaning patient. Patient on air mattress and encouraged to tell nursing staff when incontinent. Left arm flaccid. Left foot SCD. Nursing staff positioned bedside table over patient for breakfast. No further needs expressed from patient. Call light within reach. Bed alarm on
[2020-01-05 16:00] VITALS: BP 132/66; PULSE 87; TEMP 98.7
--- NOTE | 2020-01-05 17:14 | NUR ---
Patient had an unevetful day. Spent the day in bed. Had his brief undone most times before calling for assistance from nursing staff. Nursing staff had to encourage patient to eat. Denied pain and discomfort. Spent most of the shift with sheet over his head. VSS. A&O. Call light within reach. Bed alarm on
--- NOTE | 2020-01-05 21:46 | NUR ---
DECREASED ROM/STRENGTH TO LUE, BUT OBSERVED L SHOULDER MOVEMENT ON COMMAND, L HAND RUNWAY MODEL ABSENT AT THIS TIME. OBSERVED SOME GROSS MOTOR MOVEMENT TO LLE. DENIES NUMBNESS/TINGLING TO EXTREMITIES. DENIES CHEST PAIN OR SHORTNESS OF BREATH. OBSERVED FREQUENTLY HAS NONPRODUCTIVE INTERMITTENTLY MOIST COUGH. DENIES PAIN TO EXTREMITIES, GIVEN TYLENOL FOR HS TO HELP WITH RESTLESS LEGS AT NIGHT. FOLLOWS COMMANDS, SPEAKS CLEARLY, LEFT SIDED FACIAL DROOP MORE NOTICEABLE WITH GRIMACE OR SMILING.
--- NOTE | 2020-01-06 00:45 | NUR ---
PATIENT RESTLESS, TAKING OFF DISPOSIBLE BRIEFS, PATIENT RESPONDS "I DON'T KNOW" WHY HE TAKES OFF BRIEFS. PATIENT NOT INCONTINENT AT THIS TIME, PATIENT REPOSITIONED FROM LAYING ACROSS MIDDLE OF BED WITH BOTH LEGS OVER BED RAIL. BED ALARM ON WHEN PATIENT REPOSITIONED AND CLOTHING/BEDDING STRAIGHTENED OUT. DENIES ANY NEEDS OR CONCERNS CURRENTLY.
[2020-01-06 04:20] VITALS: BP 142/69; PULSE 89; TEMP 97.7
--- NOTE | 2020-01-06 05:15 | NUR ---
Patient resting with eyes closed, breathing nonlabored and even. Does not wake when room entered by staff. Bed alarm on.
--- NOTE | 2020-01-06 07:39 | NUR ---
PATIENT RESTING IN BED DURING CHANGE OF SHIFT REPORT GIVEN TO DAY SHIFT NURSEKOMAL. BED ALARM ON
--- NOTE | 2020-01-06 08:33 | NUR ---
Patient resting in bed at this time, call light in reach and bed alarm set. Patient denies any questions at this time. Denies pain. Left elbow healing well no signs of infection. Steri strips in place and applied mepilex over area to protect it. Will continue to monitor.
--- NOTE | 2020-01-06 12:59 | NUR ---
Patient has found scooted down in bed and staff assisted him with getting up to use toilet using the [id number] lift. Patient did not have a BM, but was given miralax this morning with juice. Will continue to monitor.
[2020-01-06 17:57] VITALS: BP 127/55; PULSE 88; TEMP 98.9
--- NOTE | 2020-01-06 18:50 | NUR ---
PATIENT UP IN BATHROOM DURING CHANGE OF SHIFT REPORT RECEIVED FROM DAY SHIFT NURSE.
--- NOTE | 2020-01-06 19:14 | NUR ---
CONTINUED WITH LUE WEAKNESS, NOTING L SHOULDER MOVEMENT ONLY AT THIS TIME. OBSERVED SOME LLE MOVEMENT ON COMMAND. CONTINUES WITH NONPRODUCTIVE MOIST COUGH, PATIENT DENIES SHORTNESS OF BREATH/CHESTPAIN/NUMBNESS/TINGLING TO EXTREMITIES. REQUIRES TOTAL LIFT WITH OUT OF BED ACTIVITIES DUE TO L SIDE DEFICIT/WEAKNESS, UNABLE TO WALK/AMBULATE AT THIS TIME. BED ALARM WHEN PUT BACK IN BED.
--- NOTE | 2020-01-07 02:08 | NUR ---
Patient used call light, upon entering room, observed patient laying across middle of bed (laying on left side) with both legs over bedrails to left side of bed, observed blood (moderate amount) near head on bed linens, patient denies any pain to head/body/extremities, speaks clearly, no increased facial drooping. Also observed patient with disposible briefs off his body, with incontinent stool still between buttock folds, no incontinent urine observed. With assist, blood cleaned off patient's head, observing small oozing from left sabianist area with patient stating "I scratched a scab off" with area cleaned with soap and water and applied pressure dressing of folded 4x4 gauze and foam tape. Patient tolerated dressing application. Patient also cleaned of incontinent BM, repositioned to center of bed in appropriate bodily alignment with feet towards foot of bed, and appropriately covered with bedlinen and had clean disposible briefs applied to periarea. Patient denies any other needs or concerns.
[2020-01-07 04:00] VITALS: BP 149/84; PULSE 97; TEMP 97.4
--- NOTE | 2020-01-07 07:00 | NUR ---
Report received from CAMI Boudreaux. Pt in bed resting, denies needs, CNAs in room to assite pt to be upright in bed for breakfast, pt in bed towards right side.
--- NOTE | 2020-01-07 07:21 | NUR ---
Patient resting in bed during change of shift report given to day shift nurse, Cat and orientee Xiao. Bed alarm on.
--- NOTE | 2020-01-07 09:49 | NUR ---
Assessment charted. Pt in bed sideways and towards right side again. adjusted in bed and boosted, states he did not realize he was that way in bed. Pt able to answer all orientation questions except date, felt it was TuesdayMay 2020. L forehead scab was picked off by pt last night and pressure dressing applied, tried to remove but was continuing to bleed so reapplied. L elbow skin tear covered with mepilex. L top of foot has rounded reddened area, antifungal applied. Pt denies pain or other needs. Taking PO well. Alarms on, will continue to monitor.
[2020-01-07 15:29] VITALS: BP 144/52; PULSE 87; TEMP 97.4
--- NOTE | 2020-01-07 15:59 | NUR ---
SW contacted the patient's daughter, Kim, to follow up on preferences for SNF. Kim confirms that their preferences are 1) [facility] 2) [facility]. Kim also reports that the patient and family would be interested in completing DPOA-HC paperwork while patient is here. SW then met with the patient to introduce oneself and to follow up. The patient was resting with the covers over his face. He states that he is doing okay. SW discussed a DPOA-HC. The patient reports that he would be interested in completing one and that he would want to designate his daughter, Kim, as his DPOA-HC. He did not want to name and alternate. RUTHIE and RN, Holly, witnessed the patient's signature. The patient was provided with the original and some copies. RUTHIE placed a copy in the patient's chart and emailed a copy to the patient's daughter, Kim. RUTHIE contacted and faxed updates to [employer] and [employer]. Mae, at [facility], reports that she will contact the patient's insurance and start working on prior auth either today or tomorrow. SW to continue to follow.
--- NOTE | 2020-01-07 18:25 | NUR ---
Pt has done well over shift today. Had large BM in shower with OT today. Incontinent of urine in bed, does call for assitance but unable to wait for urinal placemnet. In gown for evening, pt states he is tired, will give bedside shift report to nightshift nurse who will resume care.
--- NOTE | 2020-01-07 20:00 | NUR ---
At time of assessment, patient is awake in bed. He answers orientation questions correctly but occassionally says things that are irrelevant and inaccurate. Heart sounds are regular/normal; Lungs are clear but have expiratory wheezes throughout all lobes. No edema or pain is present. Patient does have a laceration to left forehead from scratching and a laceration to the left elbow from a fall; neither are bleeding and are covered with a clean, dry mepilex. Top of left foot has a reddened area; cream ordered on AUG applied. SCD's applied bilaterally. Will continue to monitor.
--- NOTE | 2020-01-08 05:35 | NUR ---
Patient seems to have gotten minimal rest tonight. He has been figetting in bed most of the night. He has had 4 episodes of incontinent urination and called out appropriately to successfully use the urinal one time. No complaints of pain tonight. His orientation seems to have declined throughout the night, as he was no longer oriented to place/situation when asked. Will continue to monitor.
[2020-01-08 05:56] VITALS: BP 135/65; PULSE 92; TEMP 98.3
--- NOTE | 2020-01-08 08:01 | NUR ---
Patient resting in bed, call light in reach and bed alarm set. Patient takes pills with pudding and one pill at a time. Patient denies pain at this time.
--- NOTE | 2020-01-08 10:00 | NUR ---
Initial visit; Patient thanked Hairspring Vibrator for looking in on him and offering God's blessings.
--- NOTE | 2020-01-08 13:41 | NUR ---
SW attended a patient/family conference call with patient and his , daughter (Kim), and son (Jean) on speaker phone. Also present was IPR Director, PT, OT, and ST. IPR Director started by explaining the purpose of the meeting. PT/OT/ST then discussed the patient's progress and how he has continued to make improvements while here, but will still require SNF upon discharge. A tentative discharge has been set for Tuesday, 01/10. The patient's family was in agreement to the plan. RUTHIE contacted and faxed updates to [employer] and [employer]. Mae, at [facility], reports that she submitted the patient's information to insurance this morning and that his information is pending clinical review. SW to continue to follow.
--- NOTE | 2020-01-08 16:13 | NUR ---
Mae, at [facility], reports that she heard back from insurance and they are not in-network with [employer]. Mae reports that she already notified the patient's family and they are wanting to go to [facility] now. RUTHIE then contacted the patient's daughter, Kim. Kim confirmed that they now prefer [facility], because [facility] is in-network with [employer]. RUTHIE notified Adam at [facility]. RUTHIE to continue to follow.
[2020-01-08 18:05] VITALS: BP 135/56; PULSE 92; TEMP 98.5
--- NOTE | 2020-01-08 19:30 | NUR ---
PATIENT RESTING IN BED DURING CHANGE OF SHIFT REPORT RECEIVED FROM DAY SHIFT NURSE. BED ALARM ON.
--- NOTE | 2020-01-08 19:57 | NUR ---
Patient attended all therapies today. Denied any pain this shift. Tolerated diet well. He was a set up for all his meals. Patient takes his pills one or two at a time with applesauce. Patient was very active in bed today and rolled around alot requiring staff to reposition him so he wouldn't fall out of bed. Patient is able to scoot himself up in bed on his own.
--- NOTE | 2020-01-08 20:00 | NUR ---
PATIENT WITH CONTINUE LUE FLACCID WITH SOME L SHOULDER MOVEMENT. LLE GROSS MOTOR MOVEMENT INTERMITTENTLY W/SOME DECREASE IN STRENGTH, PATIENT NONAMBULATORY D/T L SIDE DEFICIT/WEAKNESS. DENIES NUMBNESS TO EXTREMITIES AT THIS TIME. DENIES CHEST PAIN/SHORTNESS OF BREATH. STILL HAS NONPRODUCTIVE MOIST SOUNDING COUGH OBSERVED INTERMITTENTLY. CONTINUES WITH INCONTINENT VOIDING AND SOME INCONTINENT STOOLING.
--- NOTE | 2020-01-09 03:27 | NUR ---
PATIENT SLEEPING, AWAKE INTERMITTENTLY TO VOID, DENIES ANY NEEDS OR CONCERNS. BED ALARM ON.
[2020-01-09 05:36] VITALS: BP 142/68; PULSE 94; TEMP 98.6
--- NOTE | 2020-01-09 07:31 | NUR ---
PATIENT RESTING IN BED DURING CHANGE OF SHIFT REPORT GIVEN TO DAY SHIFT NURSEKOMAL. BED ALARM ON.
--- NOTE | 2020-01-09 10:36 | NUR ---
Patient resting in bed at this time, call light in reach and bed alarm set. Patient was incontinent of urine this morning. Patient very sleepy this AM and didn't eat much breakfast this morning due to this. Patient has some movement in his left leg, is able to wiggle his toes. Patient likes to position himself to the right side of the bed and tries to take his brief off. Patient is positioned close to nurse station to be able to monitor him closer. Patient sleeps with his sheet over his head most of the time. Patient denies questions this morning and denies any pain.
--- NOTE | 2020-01-09 16:11 | NUR ---
Patient finally woke up this afternoon after being drowsy all day. He ate some pudding with his afternoon pills. Patient denies any pain.
--- NOTE | 2020-01-09 16:48 | NUR ---
RUTHIE received a phone call from Heather with [facility]. Heather reports that they are requesting a [id number] for SNF and the deadline is today at 1400 for the call. Heather reports that it is very hard to get a patient approved for SNF, after they have been in IPR. RUTHIE notified IPR Director. The patient continues to make progress and the plan is to re-evaluate the patient next Tuesday. RUTHIE contacted and updated the patient's daughter, Kim, and reviewed the IPR Team Conference Note with her. Kim is agreeable to the plan. RUTHIE then presented and reviewed the IPR Team Conference Note with the patient. RUTHIE to continue to follow.
[2020-01-09 17:48] VITALS: BP 127/70; PULSE 98; TEMP 99.1
--- NOTE | 2020-01-09 19:37 | NUR ---
Patient will be working with therapies to work on being able to go home with family instead of to a SNF per feed elevator worker today. Therapy will be working with family to do training to prepare for this future transfer home.
--- NOTE | 2020-01-09 19:39 | NUR ---
PATIENT RESTING IN BED DURING CHANGE OF SHIFT REPORT FROM DAY SHIFT NURSE. BED ALARM ON.
--- NOTE | 2020-01-09 20:00 | NUR ---
PATIENT WITH LUE FLACCID BUT HAD L SHOULDER ACTIVE MOVEMENT SPONTANEOUSLY, OBSERVES LLE GROSS MOTOR MOVEMENT WITH WEAKNESS. NO PROJECT ACCOUNT MANAGER OBSERVED TO L HAND BUT DENIES NUMBNESS TO DARRYN EXTREMITIES. A/O X3 BUT OBSERVED INAPPROPRIATE COMMENT INDICATING PATIENT THINKS HE IS AT HOME "LOOK IN THE BACK BEDROOM" BUT IS COOPERATIVE AND VERBALIZES UNDERSTANDING WITH REORIENTING X3. SPEAKS CLEARLY, NO OBVIOUS L FACIAL DROOPING EXCEPT WITH GRIMACING/SMILING FACIAL EXPRESSIONS. HAS MOIST SOUNDING NONPRODUCTIVE COUGH WITH PATIENT DENYING EXPECTORATING SPUTUM. PATIENT REMAINS BEDREST FOR NIGHT TIME ACTIVITIES D/T SAFETY CONCERNS. BED ALARM ON.
[2020-01-10 05:14] VITALS: BP 112/62; PULSE 85; TEMP 98.1
--- NOTE | 2020-01-10 07:28 | NUR ---
Patient resting in bed during change of shift report given to day shift nurses, Yolanda. Bed alarm on.
--- NOTE | 2020-01-10 12:27 | NUR ---
PATIENT REQUESTED URINAL AND VOIDED USING URINAL, WHILE USING HE SPILLED SOME CONTENTS. PATIENT CLEANED WITH ROBERT WIPES.
[2020-01-10 16:07] VITALS: BP 149/53; PULSE 82; TEMP 98
--- NOTE | 2020-01-10 19:00 | NUR ---
PATIENT DENIED PAIN THROUGHOUT THE SHIFT. PATIENT REPOSITIONED NEEDED. PATIENT ABLE TO REQUEST FOR URINAL AT TIMES, OTHER TIMES PATIENT IS INCONTINENT. PATIENT RESTING IN BED. BED ALARM ON. NO NEEDS AT THIS TIME.
--- NOTE | 2020-01-10 21:00 | NUR ---
PT RESTING IN BED. AWAKE. SPEECH CLEAR. LT SIDE FLACCID. ORIENTED BUT COGNITIVE DEFECITS APPARENT. HOB 90 DEGREES. CRUSHED HS PILLS IN APPLESAUCE. TOOK HS PROTEIN DRINK. INCONTINENT URINE. INSTEAD OF USING CALL LIGHT PT UNTAPES DIAPER AND URINATES INCONTINENT. ENC TO USE CALL LIGHT. PT MOVES AROUND IN BED. SCOOTS UP TO RT BEDRAIL AND FEET TO LT SIDE OF BED. TAKES SCD OFF RLE. LT ARM REPOSITIONED ON PILLOW. BED ALARMS SET. CALL LIGHT IN REACH.
[2020-01-11 05:30] VITALS: BP 128/56; PULSE 85; TEMP 98.1
--- NOTE | 2020-01-11 16:00 | NUR ---
RUTHIE met with the patient to follow up before the weekend. The patient reports that he is good and that therapy has been going good. He states that he is trying to get some rest. SW to continue to follow.
[2020-01-11 18:18] VITALS: BP 149/56; PULSE 86; TEMP 97.9
--- NOTE | 2020-01-11 18:24 | NUR ---
GUEST HAS BEEN MORE SLEEPY THIS SHIFT, WORKED WELL WITH THERAPY AFTER BEING AROUSED. REPOSITIONING/PROVIDING PERINEAL CARE OFTEN. GUEST HAS DENIED PAIN THIS SHIFT. GUEST RESTING IN BED DURING BEDSIDE SHIFT REPORT.
--- NOTE | 2020-01-11 19:00 | NUR ---
PT RESTING IN BED. RT LEG HANGING OUT OF BED. PT TOOK DIAPER DOWN. URINATED TO LT SIDE INCONTINENT. ORIENTED AND CONVERSES BUT DIFFICULTY FOLLOWING INSTRUCTIONS W/ THOUGHT PROCESS DEFECT. DENIES PAIN. PT CLEANED UP AND REPOSITIONED. PT ABLE TO HELP TO PULL HIMSELF TO TOP OF BED. LT SIDE FLACCID W/ NEGLECT. LT ARM PLACED ON PILLOW. CALL LIGHT IN REACH. BED ALARM SET.
--- NOTE | 2020-01-11 21:00 | NUR ---
PT ORIENTED AND CONVERSES BUT PULLS SHEET AND PILLOWS OFF BED. MOVES LEGS OVER THE SIDE OF BED. BED ALARM SOUNDS. VERY RESTLESS IN BED. MELATONIN AND TYLENOL GIVEN. SWALLOW PRECATIONS CONTINUE. TAKES MED CRUSHED IN APPLESAUCE AND WITH H20. NO CHOKING. ENC PT TO USE CALL LIGHT WHEN NEEDING URINAL. WEARS DIAPERS FOR INCONTINCE. CALL LIGHT IN REACH. BED ALARM SET LOW SETTING. REFUSES SCD'S.
--- NOTE | 2020-01-12 04:00 | NUR ---
PT RESTING IN BED WITH LEGS OVER THE EDGE. REMOVED GOWN AND DIAPER. INCONTINENT OF URINE. CHANGED GOWN AND SHEET. REPOSITIONED PT. PT ABLE TO ASSIST TO GOOD ALLIGNMNET. LT ARM NEGLECT.
[2020-01-12 05:23] VITALS: BP 126/66; PULSE 79; TEMP 98.2
--- NOTE | 2020-01-12 06:08 | NUR ---
PT HAS NOT SLEPT ALL NIGHT. RESTLESS. DENIES PAIN.
--- NOTE | 2020-01-12 06:26 | NUR ---
PT EDGED UP TO RT SIDERAIL. ENC PT TO SLIDE BACK OVER. HAS GOWN OFF AGAIN. CALL LIGHT IREACH BED ALARM SET.
[2020-01-12 17:46] VITALS: BP 132/72; PULSE 90; TEMP 98.7
--- NOTE | 2020-01-12 18:52 | NUR ---
Patient has been having a large amount of urine output. His urine is yellow and clear. Assisted him with the urinal a few times but he has also been incontinent of urine at least once very hour. He is confused and keeps turning around in the bed. He won't keep a gown or depends on. Assisted him with a bed bath this am. No bowel movement today. No other changes at this time. Call light within reach. Bed alarm on.
--- NOTE | 2020-01-12 21:00 | NUR ---
PT VOIDING MOD AMTS APPROX Q HR. INCONTINENT. OUTPUT >INTAKE. DENIES ANY PAIN WITH VOIDS.
--- NOTE | 2020-01-12 21:00 | NUR ---
PT NAKED. CONFUSED. TALKING TO HIS DOG. PT RESTLESS AND HAS HAD MIN SLEEP LAST 2 NIGHT. REPOSITIONED CHANGED INTO GOWN. KEEP THROWING DIAPER ON FLOOR. SLIDES TO RT SIDE OF BED NEXT TO SIDERAIL. WORKS LEGS OFF EDGE OF BED. OBSERVED FREQUENTLY FOR SAFETY. BED ALARM ON MOST SENSITIVE SETTING. DENIES PAIN.
--- NOTE | 2020-01-13 03:42 | NUR ---
PT HAD BEEN ASLEEP FOR AWHILE. NOW AWAKE LEGS OVER THE EDGE OF BED. TAKING GOWN. INCONTINENT URINE IN DIAPER. CHANGED AND REPOSTIONED. CALL LIGHT AT REACH. BED ALARM SET.
[2020-01-13 05:25] VITALS: BP 145/73; PULSE 76; TEMP 98.2
--- NOTE | 2020-01-13 18:00 | NUR ---
Patient has been more drowsy today. He did not sleep much. He denies pain and nausea. He refused to eat lunch. He continues to be incontinent of urine. He had one small soft stool this evening. He is eating his supper but needs supervision. He keeps trying to take multiple bites at a time. Reminded him to slow down and eat one bite at a time. He ate his supper well. He did not move around in the bed as much today and stated he was just tired. No other changes at this time. Call light within reach. Bed alarm on.
[2020-01-13 18:09] VITALS: BP 156/78; PULSE 87; TEMP 98.2
--- NOTE | 2020-01-13 20:13 | NUR ---
PT CONFUSED WITH SHORT PERIODS OF LUCIDNESS. TONIGHT. WANTS TO GO OUT TO THE TRUCK TO GET HIS COWBOY SHIRT AND WINTER COAT. DENIES BEING COLD. WANTS IT WHEN HE PLANTS WHEAT. PT DENIES PAIN AT THIS TIME. LT SIDE FLACCI WITH NEGLET. CALL LIGHT IN REACH. BED ALARM SET. CHECKED FOR DRYNESS AND REPOSITIONED Q1-2HR. PT MIGRATE TO RT SIDE OF BED AND HANGS LOWER LEGS OFF BED.
[2020-01-14 05:00] VITALS: BP 143/73; PULSE 79; TEMP 98.5
--- NOTE | 2020-01-14 16:00 | NUR ---
SW attempted to meet with the patient to follow up after the weekend. The patient was sleeping and did not wake. SW to continue to follow.
[2020-01-14 17:34] VITALS: BP 141/74; PULSE 90; TEMP 98.4
--- NOTE | 2020-01-14 18:10 | NUR ---
PATIENT HAS NEEDED FREQUENT ASSISTANCE WITH URINATION/PERINEAL CARE TODAY. GUEST IS COOPERATIVE WITH CHANGING AND ROLLING AND PLEASANT WITH STAFF. SOME CONFUSION NOTED THROUGHOUT THE DAY AND TRYING TO GET OUT OF BED THIS VANESA. PATIENT IS EATING WELL AND RESTING IN BED AT BEDSIDE SHIFT REPORT.
--- NOTE | 2020-01-14 19:29 | NUR ---
PATIENT RESTING IN BED, AT TIMES RESTLESS, DENIES ANY NEEDS DURING CHANGE OF SHIFT REPORT FROM DAY SHIFT NURSES, ANIVAL. BED ALARM ON.
--- NOTE | 2020-01-14 19:56 | NUR ---
OBSERVED PATIENT RESTLESS IN BED, BLE OVER EDGE OF BED/BED RAILS, PATIENT REPORTED NEEDING TO HAVE BM, PATIENT UP TO BATHROOM VIA SIT/STAND LIFT THAT PATIENT TOLERATED WELL. DENIES ANY OTHER NEEDS.
--- NOTE | 2020-01-14 20:00 | NUR ---
CONTINUES WITH LUE WEAKNESS, WITH SEVERELY L INTERNATIONAL RECRUITER THAN RIGHT INTERNATIONAL RECRUITER. OBSERVED WEAKNESS TO LLE, ABLE TO BEAR SOME WEIGHT WITH SIT/STAND LIFT USE. DOESNOT AMBULATE DUE TO L SIDED WEAKNESS S/P STROKE DX. DENIES CHEST PAIN/SHORTNESS OF BREATH. OBSERVED INTERMITTENTLY NONPRODUCTIVE MOIST SOUNDING COUGH.
[2020-01-15 05:53] VITALS: BP 142/73; PULSE 80; TEMP 97.4
--- NOTE | 2020-01-15 07:46 | NUR ---
CHANGE OF SHIFT REPORT GIVEN TO DAY SHIFT NURSEKOMAL. BED ALARM ON.
[2020-01-15 17:09] VITALS: BP 126/68; PULSE 85; TEMP 97.4
--- NOTE | 2020-01-15 19:11 | NUR ---
Patient resting in bed call light in reach and bed alarm set. Patient denies any questions and denies pain. He had a large bowel movement this afternoon.
--- NOTE | 2020-01-15 19:14 | NUR ---
PATIENT UP IN BED EATING DURING CHANGE OF SHIFT REPORT FROM DAY SHIFT NURSE. BED ALARM ON.
--- NOTE | 2020-01-15 23:00 | NUR ---
PATIENT WITH LUE WEAKNESS WITH L HAND UNIX ANALYST WEAKER THAN TO R HAND UNIX ANALYST. OBSERVED SLIGHT L HAND MOVEMENT ON COMMAND X1 BUT COULD NOT REPEAT MOVEMENT. OBSERVED L SHOULDER MOVEMENT. CONTINUES LLE MOVEMENT THAT IS WEAKER THAN RLE. PATIENT ALERT AND ORIENTED X4 BUT WILL MENTION NEEDING TO HAVE HIS OR DOG "COME IN HERE FROM THE NEXT ROOM" OR MAKE ANOTHER REFERENCE TO HIS DOG "BOOMER" STATING HE NEEDED TO GO GET MORE DOG FOOD. OBSERVED AT TIME L FACIAL DROOPING WITH GRIMACING OR SMILING.
--- NOTE | 2020-01-16 01:41 | NUR ---
BED ALARM ON, PATIENT RESTING WITH EYES CLOSED AND BREATHING NONLABORED AND EVEN.
[2020-01-16 03:51] VITALS: BP 108/32; PULSE 91; TEMP 98.6
--- NOTE | 2020-01-16 07:23 | NUR ---
CHANGE OF SHIFT REPORT GIVEN TO DAY SHIFT NURSE, MAUREEN. BED ALARM ON.
--- NOTE | 2020-01-16 11:31 | NUR ---
First visit from the sole leather cutting machine operator. No needs right now.
--- NOTE | 2020-01-16 15:40 | NUR ---
RUTHIE met with the patient to follow up and to present and review the IPR Team Conference Note. The patient states that he is doing okay. SW discussed the patient's progress and how the team plans to re-evaluate him next Tuesday. The patient states that this sound good. RUTHIE then contacted and updated the patient's daughter (Yesenia) and (Yao) of the team's plan. Yesenia and Yao are agreeable to the plan. Yesenia asked if the patient can work on transfers in and out of a vehicle before discharge. She also asked if her and Yao could do some training with the patient here before he discharges on how to get in and out of a vehicle. RUTHIE to inform IPR Director and will continue to follow.
--- NOTE | 2020-01-16 16:47 | NUR ---
Patient attended all therapies today. Denied pain. Patient was up in his recliner today for a few hours. He is currently resting in bed at this time, call light in reach and bed alarm set. Patient is a set up for meals due to left side neglect. This nurse observed PT with transferring from wheelchair to bed using a mod contact gaurd assist with transfer using gait belt. Patient was able to transfer from bed to wheelchair using one mod contact gaurd assist.
[2020-01-16 17:46] VITALS: BP 136/62; PULSE 86; TEMP 98.3
--- NOTE | 2020-01-16 19:11 | NUR ---
PATIENT TRANSFERRED TO BATHROOM USING SIT TO STAND LIFT, WHICH HE TOLERATED WELL. HE WAS INCONTINENT OF A SMALL SOFT FORMED BROWN STOOL. DID NOT GO ON TOILET. ZINC CREAM APPLIED TO EXCORIATION/REDNESS ON BOTTOM. PATIENT ATE DINNER WELL. WAS HELPED TO MOVE UP IN BED AND WAS RESTING IN BED DURING SHIFT REPORT. BED IN LOWEST POSITION, CALL LIGHT IN REACH. WATER AND TRAY ALSO WITHIN REACH.
--- NOTE | 2020-01-16 21:30 | NUR ---
PT RESTING IN BED. SCOOTS HIMSELF TO THE END OF BED AND LEGS OFF THE SIDE. HE'S NOT SURE WHY HE DOES THAT. REPOSTIONED 2:1 BACK UP TO TOP OF BED. CHECKED AND CHANGED DIAPER Q2HR PER 2 SCREENING UNIT REGISTERED NURSE'S. ABLE TO MOVE LT FORARM ALITTLE BUT UNABLE TO SPORTS COORDINATOR. MOVES TOES WITH REFLEX WHEN TOUCH FOOT. ENC TO USE CALL LIGHT IF NEEDING ANYTHING. DENIES ANY PAIN. PT QUITE HUMOROUS. PT TAKES HS PILLS CRUSHED IN PUDDING. DRINKING SO GRAPE JUICE PER REQUEST.
[2020-01-17 04:14] VITALS: BP 158/72; PULSE 85; TEMP 97.7
--- NOTE | 2020-01-17 07:30 | NUR ---
PATIENT IS ORIENTED X2 WITH OCCATIONAL CONFUSION/FORGETFULNESS NOTED. VSS. DENIES PAIN THIS AM. NOTED LEFT SIDE FLACID POST STROKE. PATIENT ALSO ASPIRATION RISK. TOLERATING MECH SOFT DIET WELL. MEDS GIVEN IN PUDDING. PT/OT/ST CONSULTED. PATIENT IS 2 ASSIST AND INCONTINENT. HEAD TO TOE ASSESSMENT COMPLETE, SEE SKIN ASSESSMENT. BREAKFAST TRAY AT BEDSIDE. NO OTHER NEEDS. CALL LIGHT IN REACH. BED ALARM ON.
[2020-01-17 16:45] VITALS: BP 133/52; PULSE 90; TEMP 98.6
--- NOTE | 2020-01-17 18:45 | NUR ---
PT SCOOTING OUT OF BED. PT HANGING LEGS OVER THE BOTTOM OF THE BED. LINENS AND GOWN WET. PT AND BED CLEANED UP. REPOSITIONED. CARRIES ON CONVERSATION ABOUT TRUMP. USES HUMOR. CALL LIGHT IN REACH. BED ALARM SET.
--- NOTE | 2020-01-17 22:54 | NUR ---
PT BED ALARM SOUNDING FREQUENTLY. PT TAKING OFF HIS GOWN AND DIAPERS. TRYING TO SCOOT OUT OF BED. VERY RESTLESS AND CONFUSED. CALLING OUT FOR HIS . " PT ASKED SEVERAL TIMES WHOSE TAKING CARE OF THE DOG. HAD MELATONIN EARLIER HE HAS EVERY NIGHT. DENIES PAIN. CALLED [facility]. NO ANSWER. WILL TRY AGAIN LATER. PT INCONTINENT OF URINE SEVERAL TIMES. HAD MED THICK BROWN INCONTINENT STOOL EARLIER TONIGHT.
--- NOTE | 2020-01-17 23:07 | NUR ---
PT VERY ACTIVE AND IMPULSIVE TONIGHT. MORE CONFUSED THAN USUAL. DENIES PAIN. CARRIES ON CONVERSATION THEN DRIFTS TO CONFUSING TOPICS. NO OTHER CHANGES IN NEUROSTATUS. REPOSITION BACK UP TO TOP OF BED. DIAPER BACK ON .USED URINAL WITH ASSIST. LT HAND BRACE IN PLACE. LT SIDE FLACCID. ALL SAFETY MEASURES TO KEEP PT SAFE AND FREE OF FALLING.
[2020-01-17 23:26] VITALS: BP 140/61; PULSE 81; TEMP 98.4
--- NOTE | 2020-01-18 00:30 | NUR ---
PT SETTLING SOME. SLEEPS FOR VERY SHORT PERIODS. PT TOOK GOWN OFF AGAIN. COVERED HIM WITH SHEET. COVERES HIS HEAD SO THE DOG DOESNT BOTHER HIM. BED ALARM SET TO MIDDLE SETTING. CALL LIGHT IN REACH.
--- NOTE | 2020-01-18 03:15 | NUR ---
PT DOZING AT TIMES. NO RESP DISTRESS.
--- NOTE | 2020-01-18 06:00 | NUR ---
PT NAKED IN BED. INCONTINENT OF STTOL AND URINE. PT CLEANED UP. REFUSED GOWN.
[2020-01-18 06:09] VITALS: BP 143/76; PULSE 86; TEMP 98.7
--- NOTE | 2020-01-18 09:59 | NUR ---
Patient very lethargic this morning, so was hard to wake up to eat breakfast. He refused breakfast this morning, stating that he was use to not eating breakfast. Patient on 3L oxygen via nasal cannula. Patient denied questions this morning. He took his pills whole with water having no difficulty. Will continue to monitor.
--- NOTE | 2020-01-18 14:15 | NUR ---
Patient has attended all therapies today. He just returned from PT and is resting in bed, call light in reach and bed alarm set. Patient has been very anxious this afternoon wanting to leave to go to his truck, because there are two phone numbers that he needed to retrieve from there. This nurse placed a call to his daughter, Kim and she visited with him over the phone. This nurse needed to educate patient multiple times on the need for him to use his call light if he wanted to get up or just needed anything. Denies pain this and had a shower this morning when working with OT.
--- NOTE | 2020-01-18 14:48 | NUR ---
Screw Machine Tool Setter followed up with patient who denies any questions or concerns at this time. Patient states he got to work with SANDRA Cartwright today and hopes to work with him again tomorrow. SW will continue to follow.
[2020-01-18 16:25] VITALS: BP 153/57; PULSE 88; TEMP 99
--- NOTE | 2020-01-18 18:19 | NUR ---
Patient currently resting in bed, call light in reach and bed alarm is set. He likes to sleep with his sheets over his head. He denies pain at this time.
--- NOTE | 2020-01-18 20:00 | NUR ---
Report received. Assumed care for production supervisor off shift. Assessment complete. A&O to self with confused conversation. Denies pain/nausea/shortness of breath. VS remain stable. Assisted up in bed with pillow support to left upper extremity. Incontinent care provided. Plan of care discussed for HS meds/calling for help. Verbalizes understanding. Denies questions/concerns. Call light in reach/bed alarm on. Will monitor.
--- NOTE | 2020-01-19 00:30 | NUR ---
Very restless this shift. Has been undressing self and throwing brief on the floor and calling and whistling for "Boober." States Boober is his dog. Re-oriented several times but still very confused. Denies pain/nausea/shortness of breath. Call light in reach/bed alarm on. Will monitor.
[2020-01-19 05:46] VITALS: BP 135/66; PULSE 82; TEMP 98.4
[2020-01-19 17:56] VITALS: BP 145/62; PULSE 85; TEMP 98.5
--- NOTE | 2020-01-19 19:08 | NUR ---
PATIENT EATING UPRIGHT IN BED, BED IN LOW, CALL LIGHT WITHIN REACH, BED ALARM ON. PATIENT DENIED ANY NEEDS AT TIME OF BEDSIDE SHFIT REPORT.
--- NOTE | 2020-01-19 20:00 | NUR ---
Report received, asssumed care for professor of sociology. Assessment complete. A&Ox1-very confused-conversation confused and unable to re-orient. Denies pain/shortness of breath/nausea. Has been very restless working self to end of bed with legs off. Repositioned several times. Has been incontinent of urine. Did tolerate dinner meal eating 100% as well as snack. HS meds given in pudding. Denies current needs. Call light in reach/bed alarm on. Will continue to monitor.
--- NOTE | 2020-01-20 00:45 | NUR ---
Resting eyes closed-audible snore. Has been resting well so far this shift. No s/s of pain or discomfort noted. Call light in reach/bed alarm on. Will monitor.
--- NOTE | 2020-01-20 05:20 | NUR ---
Rested well at the beginning of shift-awake last few hours. Very confused and unable to re-orient. Continues to undress self, remove brief and scoot to end of the bed. Denies pain/shortness of breath/nausea. Is adament he will not rest until his dog "Boomber" arrives to sleep with him. Denies current needs. Call light in reach/bed alarm on. Will monitor.
[2020-01-20 05:59] VITALS: BP 142/81; PULSE 85; TEMP 97.6
[2020-01-20 17:21] VITALS: BP 134/74; PULSE 82; TEMP 98.2
--- NOTE | 2020-01-20 19:09 | NUR ---
PATIENT WAS VERY ACTIVE TODAY, ATTEMPTING TO GET OUT OF BED AND VERY INCONTINENT OF URINE. AT BEDSIDE SHIFT REPORT WE CHANGED THE PATIENT'S BRIEF AND BED LINENS WELL BOOSTED THE PATIENT UP IN BED. BED ALARM ON, CALL LIGHT WITHIN REACH, AND BED IN LOW. PATIENT DENIED ANY OTHER NEEDS.
--- NOTE | 2020-01-20 19:29 | NUR ---
PATIENT IN BED DURING CHANGE OF SHIFT REPORT FROM DAY SHIFT NURSES, ANIVAL. BED ALARM ON.
--- NOTE | 2020-01-20 20:30 | NUR ---
L HAND RIVER PILOT WEAKER THAN RIGHT, BUT MORE THAN LAST WEEK COMPARATIVELY. OBSERVED MORE STRENGTH TO LLE COMPARED FROM LAST WEEK. STILL NOT ABLE TO AMBULATE D/T OVERALL. DENIES ANY DISCOMFORT, FOLLOWS COMMANDS, ORIENTED X4 WHEN ASKED QUESTIONS BUT WOULD MENTION NEEDING TO FEED HIS DOG OR GET MORE DOG FOOD. UNABLE TO AMBULATE D/T SAFETY CONCERNS. BED ALARM WHEN IN BED.
--- NOTE | 2020-01-21 03:39 | NUR ---
PATIENT INTERMITTENTLY RESTLESS, MOVES SELF TO RIGHT SIDE OF BED, NOTICEABLE WHEN ATTEMPTING TO URINATE WITH OR WITHOUT URINAL, INCONTINENT IN ADULT BRIEFS. INCONTINENT CARE DONE AFTER EACH VOID, ZINC APPLIED TO LEFT BUTTOCK RASH AREA, SITE BLANCHES, PATIENT DENIES DISCOMFORT TO RASH AREA. BED ALARM ON.
[2020-01-21 05:29] VITALS: BP 168/75; PULSE 85; TEMP 97.5
--- NOTE | 2020-01-21 07:04 | NUR ---
Change of shift report given to day shift nurses, Leanna. Bed alarm on.
--- NOTE | 2020-01-21 07:07 | NUR ---
PATIENT WAS REPOSITIONED IN BED AND BOOSTED UP IN THE BED AFTER HAVING MOVED SLEF DOWN. BRIEF WAS REFASHIONED AND CHECKED FOR INCONTINENCE. PATIENT DENIED PAIN AT TIME OF BEDSIDE SHIFT REPORT. CALL LIGHT WITHIN REACH, BED ALARM ON, AND BED IN LOW.
--- NOTE | 2020-01-21 08:15 | NUR ---
Patient in bed, repositioned at this time. Alert and oriented to self and place, patient answeres questions appropriately but is slow to respond. Left sided neglect noted. Denies further needs at this time.
--- NOTE | 2020-01-21 15:23 | NUR ---
Polymer Materials Consultant met with the patient to follow up from the weekend. The patient states he had a restful weekend and denies any concerns or questions at this time.
[2020-01-21 17:11] VITALS: BP 145/65; PULSE 80; TEMP 98.9
--- NOTE | 2020-01-21 18:54 | NUR ---
Patient has done well throughout the day. Repositioned throughout the day. Patient has been attempting to get out of bed, remains confused at times. Looking for his dog, donny. Patient also states he has been saving food in his bed for the "rats". Patient eating meals independently, set up help only. Assisted patient to shave this afternoon. Patient occasionally continent of urine and will call for urinal, otherwise incontinent and pericare provided. Reported off to nightclub manager.
--- NOTE | 2020-01-21 19:14 | NUR ---
CHANGE OF SHIFT REPORT RECEIVED FROM DAY SHIFT NURSES. BED ALARM ON.
--- NOTE | 2020-01-21 19:18 | NUR ---
PATIENT WITH UNEQUAL ACCOUNTING ADVISORY SERVICES MANAGER WITH LEFT LESS THAN RIGHT AND LLE WEAKER THAN RIGHT, OBSERVED ABLE TO USE LEFT LEG WITH STAFF ASST TO REPOSITION IN BED. PATIENT RESTLESS IN BED, HAS BLE OVER EDGE OF BED FREQUENTLY WHEN AWAKE. BED ALARM ON.
--- NOTE | 2020-01-22 01:52 | NUR ---
PATIENT SLEEPING, INTERMITTENTLY, BREATHING NONLABORED/EVEN. BED ALARM ON.
[2020-01-22 06:01] VITALS: BP 154/81; PULSE 88; TEMP 98.3
--- NOTE | 2020-01-22 07:30 | NUR ---
CHANGE OF SHIFT REPORT GIVEN TO DAY SHIFT NURSEKOMAL. BED ALARM ON.
--- NOTE | 2020-01-22 10:58 | NUR ---
Patient currently working with ST at this time. Patient has attended all therapies. He takes his pills with pudding and takes more time to swallow each pill. Patient continues to have some congestion and reports that he did cough up some phlegm the other day. Patient denies pain this morning. He was given bowel meds this am. Will continue to monitor.
--- NOTE | 2020-01-22 14:07 | NUR ---
Plastic Surgery Manager contacted the patient's , Madhu to follow up and address any questions or concerns. Will continue to follow.
--- NOTE | 2020-01-22 15:08 | NUR ---
Patient sleeping in bed, call light in reach and bed alarm set and likes to place his sheet over his head.
[2020-01-22 18:15] VITALS: BP 145/60; PULSE 86; TEMP 99.1
--- NOTE | 2020-01-22 19:30 | NUR ---
CHANGE OF SHIFT REPORT RECEIVED FROM DAY SHIFT NURSE. BED ALARM ON.
--- NOTE | 2020-01-22 20:00 | NUR ---
UNEQUAL HAND COVER STRIPPER WITH L WEAKER THAN RIGHT, OBSERVED SOME GROSS HAND MOVEMENT, IMPROVED FROM LAST WEEK. CONTINUES WITH IMPROVED LLE GROSS MOTOR MOVEMENT, ABLE TO ASST WITH LIFTING/SLIDE REPOSITIONING OF HIPS ON COMMAND. STILL UNABLE TO STAND WALK WITH NURSING STAFF, CONTINUES TO BE A SAFETY CONCERNS FOR NURSING AT NIGHT, DOES ASST WITH TURNS IN BED MORE THAN COMPARED TO LAST WEEK. SPEECH UNDERSTANDABLE WITH NO FACIAL DROOPING OBSERVED, SWALLOWS WITHOUT DIFFICULTY WITH WHOLE PILLS AND THIN LIQUIDS AND SOFT FOODS. DENIES CHEST PAIN/SHORTNESS OF BREATH. STILL HAS MOIST SOUNDING NONPRODUCTIVE COUGH INTERMITTENTLY BUT LESS FREQUENTLY COMPARED TO LAST WEEK. BED ALARM ON WHEN IN BED. DENIES PAIN AT THIS TIME.
--- NOTE | 2020-01-23 01:00 | NUR ---
PATIENT SLEEPING, DOES NOT WAKE WHEN ROOM ENTERED BY STAFF. BREATHING NONLABORED AND EVEN. BED ALARM ON.
[2020-01-23 04:59] VITALS: BP 129/78; PULSE 81; TEMP 98.5
--- NOTE | 2020-01-23 07:47 | NUR ---
CHANGE OF SHIFT REPORT GIVEN TO DAY SHIFT NURSEKOMAL. BED ALARM ON.
--- NOTE | 2020-01-23 15:58 | NUR ---
[employer] contacted the patient's daughter, Kim to discuss the Team Conference note. Kim inquired about the patient's diet. She was told the patient would be on a regular diet as of last week. This day's note states he is on a mechanical soft diet with thin liquids. Kim would like to have the patient practice getting in and out of her vehicle, she has a Prius. SW collaborated the above information with the patient's nurse.
[2020-01-23 17:04] VITALS: BP 149/62; PULSE 73; TEMP 98.5
--- NOTE | 2020-01-23 18:27 | NUR ---
Patient's watch has been missing since this morning. Multiple staff have looked for it and have had no luck. [facility] staff also looked in the shower to make sure it did not get left in the shower room. This nurse called the kitchen staff to see if they found one on a meal tray, but they have not seen one. Will report off to next shift to keep an eye out for this watch. mushroom growing supervisor was contacted about this event.
--- NOTE | 2020-01-23 19:35 | NUR ---
Patient attended all therapies today. Denied pain this shift. Patient continues to have confusion with some situations. He tried to climb out of bed multiple times to try to leave and staff would redirect him. He attempted to get out of his recliner and wheelchair multiple times with staff redirecting him. Each time patient is educated by staff, the alarms are checked and patient has been wearing his yellow slip proof socks as well as has his yellow risk braclet on. Patient has been asked to use his call light, but he does forget to use it most times. Will just continue to keep an eye on him.
--- NOTE | 2020-01-24 03:14 | NUR ---
Patient has been incontinent of bowel and bladder this shift. No complaints of nausea or pain noted. Patient bedding changed. Patient is able to assist in rolling and lifting lower extremeties for changes. Left arm in brace for sleeping per OT request. Vital stable this shift.
[2020-01-24 06:21] VITALS: BP 168/80; PULSE 83; TEMP 98
[2020-01-24 17:26] VITALS: BP 154/83; PULSE 89; TEMP 98.2
--- NOTE | 2020-01-24 17:28 | NUR ---
Patient resting in bed eating dinner at this time. Patient is alert and paritally oriented, remains impulsive. Patient has been continent of urine and incontinent of stool today. Patient continues to deny pain, bed alarm on.
--- NOTE | 2020-01-24 19:00 | NUR ---
BEDSIDE SHIFT REPORT. PT ATTEMPTING TO MOVE OUT OF THE CHAIR. WANTS TO GO TO BED. 2:1 PIVOT TRANSFER. PT INCONTINENT OF THICK PASTEY BROWN BM. CLEANED UP. REPOSTIONED. READY FOR SLEEP. CALL LIGHT IN REACH. BED ALARM SET. PT STILL HAS PERIODS OF CONFUSION MIXED WITH COMPLETE LUCIDNESS. STILL IMPULSIVE.
--- NOTE | 2020-01-25 05:06 | NUR ---
BED ALARM SOUNDING. PT LAYING SIDEWAYS IN BED. LEGS OVER THE SIDERAIL. INCONTINENT URINE. CHANGED AND CLEANED UP.
[2020-01-25 06:13] VITALS: BP 123/75; PULSE 85; TEMP 98
--- NOTE | 2020-01-25 07:11 | NUR ---
PATIENT SLEEPING IN BED DURING BEDSIDE SHIFT REPORT. BED IN LOW, BED ALARM ON, CALL LIGHT WITHIN REACH.
[2020-01-25 17:06] VITALS: BP 145/65; PULSE 84; TEMP 98.6
--- NOTE | 2020-01-25 18:51 | NUR ---
PATIENT EATING IN BED AT BEDSIDE SHIFT REPORT. BED IN LOW, CALL LIGHT WITHIN REACH, BED ALARM ON. PATIENT CHANGED SHORTLY BEFORE REPORT. AND REPOSITIONED.
--- NOTE | 2020-01-25 20:00 | NUR ---
PT RESTING IN BED. ORIENTED FOR THE MOST PART. PT HUMOROUS IN CONVERSATION. BUT ON OCCASION IS STILL IMPULSIVE. LT SIDE FLACCID. WEARS DIAPERS FOR INCONTINENCE. DENIES PAIN. CALL LIGHT IN REACH. ENC PT TO USE CALL LIGHT IF NEEDED. BED ALARM SET.
[2020-01-26 05:08] VITALS: BP 134/69; PULSE 79; TEMP 98.7
--- NOTE | 2020-01-26 10:02 | NUR ---
Patient refused morning meds and is currently working with therapy. He has been saying "Someone is going to sit on me." This nurse reassured patient that no one would be sitting on him. He is agitated this morning so will continue to monitor him. Once morning therapy is over will attempt to try to give morning meds again.
--- NOTE | 2020-01-26 12:21 | NUR ---
Patient took his yellow gown off and is currently resting in recliner, call light in reach and alarm set to chair. Patient ate most of his lunch this afternoon leaving carrots, as he doesn't like them. Patient denied pain at this time. Patient educated on the need to use his call light if he needs to get up. Will continue to monitor.
--- NOTE | 2020-01-26 15:38 | NUR ---
Patient used his call light appropriatly and this nurse transferred patient with a pivot transfer using gait belt and walker to pivot to the bed. Patient was able to lift his left leg upon the bed via his right leg. Patient just had another incontinent urine/stool following his nap. Patient was moving around in bed and his bed alarm went off. This nurse found him putting his right hand in his brief with the incontinent stool. Patient showed this nurse what he had done and patient was cleaned up and changed. He is currently resting in bed, call light in reach and bed alarm is set. Will continue to monitor.
[2020-01-26 16:18] VITALS: BP 144/58; PULSE 82; TEMP 98.7
--- NOTE | 2020-01-26 20:00 | NUR ---
PT RESTING IN BED. ALITTLE MORE AGITATED TONIGHT. PT RELATES "I WANT MY RED SHORT AT THE END THERE." THERE WERE NO RED PANTS. WAS REPORTED BY KOMAL AKHTAR, PT CONTINUALLY REMOVES HIS CLOTHES DURING DAY SHIFT. PT SCOOTS AROUND IN BED IN ATTEMPT TO GET OUT OF BED. PT DOES NOT WANT TO GET UP IN RECLINER. HAS FASK MASK OVER HIS GLASSESS. PT KNOWS MONTH AND YEAR AND PLACE. PT EXPRESSES CONFUSED THOUGHTS. LT SIDED FLACCID. LT ARM AND LEG MORE STIFF TONIGHT. DENIES PAIN. DOES NOT KEEP PILLOWS IN PLACE FOR SUPPORT. ENC PT TO USE CALL LIGHT WHEN NEEDING ASSIST. CALL LIGHT IN REACH. BED ALARMS SET.
--- NOTE | 2020-01-26 20:25 | NUR ---
BED ALARM SOUNDING. FOUND PATIENT ON FLOOR AT THE RIGHT SIDE OF THE BED. SIDERAILS UP ON RT. CHECKED FOR INJURIES. NO OBVIOUS INJURIES. VSS. 3:1 TRANSFER BACK INTO BED. PT RELATES LT HIP HURTS AL LITTLE. NO REDNESS OR CONTUSIONS OR CHANGE IN NEURO STATUS NOTED. NOTIFIED Vanesa REEVES. NEW ORDERS.
[2020-01-26 22:12] VITALS: BP 160/94; PULSE 88
--- NOTE | 2020-01-26 22:45 | NUR ---
PT ALSEEP AT THIS TIME. NO RESP DISTRESS.
[2020-01-27] VITALS: BP 135/72; PULSE 87
--- NOTE | 2020-01-27 02:03 | NUR ---
PT RESTING MORE THAN USUSAL TONIGHT. DENIES PAIN. NO CHANGE IN NEURO STATUS. PT CALM AND COOPERATIVE. CALL LIGHT IN REACH. BED ALARM SET.
[2020-01-27 04:00] VITALS: BP 150/67; PULSE 86
--- NOTE | 2020-01-27 04:00 | NUR ---
PT CONTINUES SLEEPING. WAKES EASILY. DENIES PAIN OR NEEDS. DIAPER DRY. SAFETY PRECAUTIONS IN PLACE.
[2020-01-27 05:51] VITALS: BP 142/72; PULSE 79; TEMP 97.8
--- NOTE | 2020-01-27 09:36 | NUR ---
Patient resting in bed this morning and moves around in bed alot. Was incontinent of urine this morning. Bedding was changed. Patient alert to day, month, name and birthday, but does not remember to call staff when needing to get up. Patient was placed in recliner at this time so bedding could be changed and he is currently getting shaved by NADIR/Jose M. Patient ate well this morning. Denies pain at this time.
--- NOTE | 2020-01-27 10:12 | NUR ---
Patient had a fall last night and is still on neuro checks this morning with no signs of pain. VSS and neuro checks are stable. Will continue to monitor.
--- NOTE | 2020-01-27 15:04 | NUR ---
This nurse moved her computer over in front of patient's room so that she could keep a better eye on him since he had a fall yesterday. Patient has been very anxious and moving around alot in his recliner and in bed. He has asked multiple times to be able to go home. Daughter was called this morning and when told that her dad has been trying to get up out of his chair not using the call light first she asked if a seat belt could be used in the chair to prevent him from getting up. This nurse reported that Pysical Therapy thought he would be okay and did not need supervision at this time. This nurse continues to redirect patient multiple, multiple times so that he is aware that he can not go home, but that we are getting him stronger so that he can go home soon. He voices understanding, but still thinks he can go out to his truck to get clothing, his watch, his phone or just drive back home. This nurse called his son, Jean at his request and son did talk to him for a few minutes. This did help hiim relax for a few minutes. The daughter was called this afternoon per patient request so that she could get patient's to come see him and go over some papers. Daughter said that when she goes by to see her mom this evening she will see if his will call him. This was communicated to patient. Patient is Alert and oriented to name, place, date, year, but does not the ability to know when he is being unsafe and does not make good safety choices. This nurse will continue to monitor. Patient continues to throw his legs over the side of the bed and this nurse has continued to educate him on the need to not try to climb out of bed, but to use his call light for assistance. This nurse will continue to educate him.
[2020-01-27 16:50] VITALS: BP 145/73; PULSE 84; TEMP 97.9; TEMP 99.3
--- NOTE | 2020-01-27 19:30 | NUR ---
PT RESTING IN BED WITH COVER OVER FACE. CALL LIGHT INREACH. BED ALARM SET.
--- NOTE | 2020-01-27 21:00 | NUR ---
PT RESTLESS IN BED. MMOVES AROUND AND SCOOTS TO BOTTOM OF BED OR PLACES LEG OVER SIDERAIL. PT RELATED HAD TO GO OUT TO HIS TRUCK. GAVE PM PILLS WITH PUDDING. ORIENTED MIXED WITH CONFUSION. GAVE TYLENOL/ MELATONIN. BEDRAILS UP X3 CALL LIGHT IN REACH. BED ALARMSET ON LOW SETTING.
--- NOTE | 2020-01-28 03:16 | NUR ---
PT HAS BEEN SLEEPING WELL TONIGHT. AWAKE NOW. CLOTHEES OFF. ASSISTED WITH URINL. CHANGED DIAPER. REPOSITIONED PT. CALL LIGHT IN REACH. BED ALARM SET.
[2020-01-28 05:37] VITALS: BP 158/84; PULSE 84; TEMP 98.1
--- NOTE | 2020-01-28 08:50 | NUR ---
Silk Washing Machine Operator contacted the patient's daughter, Kim to set up family training. She was agreeable to 1300 on 01/28. SW informed NGHIA Amos Director.
--- NOTE | 2020-01-28 14:39 | NUR ---
Knock Up Assembler met with the patient to follow up. The patient states he is resting but does not sleep at times. He enjoyed the BBQ he had for lunch. There were no other questions or concerns at this time.
[2020-01-28 16:37] VITALS: BP 145/78; PULSE 81; TEMP 98.5
--- NOTE | 2020-01-28 19:05 | NUR ---
Received report from Ana Laura. Seen patient in bed, covering his body with blanket. He denies pain. Repositioned patient in bed. Call light within reach.
--- NOTE | 2020-01-29 04:04 | NUR ---
Patient had a bowel movement in his briefs. Briefs, bed linens and blankets were changed.
[2020-01-29 05:37] VITALS: BP 146/67; PULSE 89; TEMP 98.3
[2020-01-29 17:28] VITALS: BP 134/70; PULSE 69; TEMP 98.1
--- NOTE | 2020-01-29 19:07 | NUR ---
Patient resting in bed at bedside shift report. Patient worked with therapy and family on training for discharge today. Bed in low position, call light within reach, bed alarm on. Patient assisted to the bathroom before report.
--- NOTE | 2020-01-30 00:37 | NUR ---
Patient had incontinent void. Briefs and bed linens were changed. Repositioned patient and boost him up in bed.
[2020-01-30 05:47] VITALS: BP 167/72; PULSE 84; TEMP 98.3
--- NOTE | 2020-01-30 06:19 | NUR ---
Patient had an episode of confusion last night. He whistles and calling his dog named "Hayden". Re-oriented patient that he is in the hospital and his dog is not here. Changed patient's briefs couple times due to his incontinent void.
--- NOTE | 2020-01-30 16:10 | NUR ---
Catalyst Operator Gasoline contacted the patient's daughter, Kim to review the Team Conference notes. The patient is needing a carline-walker. [facility] was chosen. The patient is needing HHS. [facility] was chose. SW to fax order and referral. Kim inquired about private duty services. SW provided information. Will continue to monitor.
[2020-01-30 17:50] VITALS: BP 147/69; PULSE 79; TEMP 98.1
--- NOTE | 2020-01-30 19:30 | NUR ---
PATIENT HAD ONE INCONTINENT VOID DURING THE DAY. PATIENT DENIED PAIN THROUGHOUT THE SHIFT. PATIENT REPOSITIONED IN BED. REPORTED OFF TO NIGHT NURSE.
--- NOTE | 2020-01-30 20:00 | NUR ---
PT RESTING IN BED. BED ALARM SOUNDING. PT WORKING HIS WAY TO THE BOTTOM OF THE BED. REPOSITIONED. INCONTINET URINE. CHANGED CHUX AND GOWN. PT ABLE TO PULL HIMSELF UP IN BED. LT SIDE REMAINA FLACCID. CALL LIGHT IN REACH. BED ALARM SET.
[2020-01-31 06:08] VITALS: BP 161/89; PULSE 84; TEMP 98.2
--- NOTE | 2020-01-31 11:00 | NUR ---
Patient currently working with therapy at this time. Patient denies pain this morning.
[2020-01-31] MEDS ORDERED: SYSTANE 0.3-0.1 EACH OP (12:49)
[2020-01-31] MEDS ORDERED: ZINC OXIDE 28GM TOP (12:50)
[2020-01-31] MEDS ORDERED: [UNRECOGNIZED DRUG - OTHER] TP (12:50)
[2020-01-31] MEDS ORDERED: ANTI-FUNGAL1% TP (12:50)
[2020-01-31] MEDS ORDERED: MELATIN 3 MG-11 TAB PO (12:51)
[2020-01-31 17:00] VITALS: BP 136/67; PULSE 82; TEMP 98.3
--- NOTE | 2020-01-31 19:37 | NUR ---
Patient used his call light appropriatly this shift. Patient currently resting in bed, call light in reach and bed alarm set. Patient's clothes were all dirty so staff will be washing them this evening. Patient denied pain this shift. He was a set up for meals today and is mechanical soft at this time. Will continue to monitor.
--- NOTE | 2020-01-31 20:00 | NUR ---
PT RESTING IN BED. CONFUSED TONIGHT. CALLING OUT FOR HIS DOG AND . ATTEMPTED TO REORIENT. THINKS HE IS AT HIS DAUGHTERS. TAKES HS MEDS WHOLE WITH PUDDING. TOOK 100% OF HS SUPLEMENT. TOOK GOWN OFF. RESTLESS TONIGHT. CALL LIGHT IN REACH. BED ALARM SET.
[2020-02-01 05:13] VITALS: BP 162/71; PULSE 81; TEMP 97.8
--- NOTE | 2020-02-01 12:58 | NUR ---
PATIENT HEALTH SUMMARY, DISCHARGE SUMMARY, AND HOME MEDS PRINTED AND REVIEWED WITH PATIENT AND , DAX. STRESSED IMPORTANCE OF FOLLOW UP APPOINTMENTS. REVIEWED MEDICATIONS. CALLED PRESCRIPTIONS TO [facility] IN [place]. BELONGINGS GATHERED BY IT RISK AND ASSURANCE SENIOR MANAGER/AND . PATIENT TRANSPORTED VIA WHEELCHAIR BY [facility] AND SEATBELTED FOR RIDE HOME. PATIENT AND DENIED QUESTIONS.
--- NOTE | 2020-02-01 13:01 | NUR ---
MEDICATIONS CALLED TO PHARMACY INCLUDE PLAVIX, LIPITOR, DOCUSATE SODIUM, MELOTIN. CALLED PATIENT'S DAUGHTER ARMAAN, SHE WILL BE PICKING UP MEDICATIONS FROM PHARMACY, INCLUDING A PILL BOX. PROVIDED EDUCATION TO DAUGHTER OVER THE PHONE AND IN PERSON REGARDING TRANSFERS, BRIEF CHANGES, AND MEDICATION ADMINISTRATION. PATIENT HAD A SMALL BM AND WAS CHANGED PRIOR TO DISCHARGE, ZINC CREAM ALPPLIED. LUNCH WAS REFUSED AND DENIED PAIN.
--- NOTE | 2020-02-01 13:45 | NUR ---
Discharge QIM scores were reviewed by the team. Code of 5 chosen for oral hygiene was determined by team discussion to be the most usual performance for this patient during the assessment period. Code of 4 for sit to lying was determined by team discussion to be the most usual performance for this patient during the assessment period. Code of 4 chosen for lying to sitting on side of bed was determined by team discussion to be the most usual performance for this patient during the assessment period.--Bette Block, PD
--- NOTE | 2020-02-01 14:32 | NUR ---
The patient discharged home today, 01/31 with family support and [facility]. PT/OT/ST/Nursing. The patient's carline walker delivered by [facility]. There are no additional needs at this time.
--- NOTE | 2020-02-01 17:53 | NUR ---
Patient's watch was found when cleaning staff cleaned patient's room following discharge today. Daughter Kim was called about it being found and she will be coming by to pick it up next week. It was placed in the bathroom next to the [facility] nurse station with a label reading Juan Joes Hutchins stapled to it. An event report had been submitted approximately a week ago noting the loss of this watch. Family is greatful it has been found.
== END 2020-02-01 12:45 | disposition home health service (06) | DRG 56 ==
PROVIDERS: ADMIT Internal Medicine
DX: I69.354 Hemiplegia and hemiparesis following cerebral infarction affecting left non-dominant side (principal); I63.231 Cerebral infarction due to unspecified occlusion or stenosis of right carotid arteries; S05.32XA Ocular laceration without prolapse or loss of intraocular tissue, left eye, initial encounter; I69.392 Facial weakness following cerebral infarction; B37.9 Candidiasis, unspecified; R13.10 Dysphagia, unspecified; H53.40 Unspecified visual field defects; W19.XXXA Unspecified fall, initial encounter; W07.XXXA Fall from chair, initial encounter; Y92.230 Patient room in hospital as the place of occurrence of the external cause; R05 Cough; D72.829 Elevated white blood cell count, unspecified; Z79.82 Long term (current) use of aspirin; Z79.02 Long term (current) use of antithrombotics/antiplatelets; Z79.1 Long term (current) use of non-steroidal anti-inflammatories (NSAID); Z87.891 Personal history of nicotine dependence
CPT/HCPCS: 99222-AI; 99231-AI; 99232-AI; 99233-AI; 99239; J1650